=== PATIENT | male | born 1955 | race Caucasian/White ===

== ENCOUNTER → 2023-08-14 07:08 | Outpatient (REF) | payer MEDICARE, OTHER, SELFPAY | LOC: MRI 07:08 | PROVIDERS: ATTENDING PHYSICIAN Internal Medicine | DX: M25.562 Pain in left knee (principal) | CPT/HCPCS: 73721 ==

== ENCOUNTER → 2023-09-10 11:05 | Outpatient (REF) | payer MEDICARE, OTHER, SELFPAY ==
[2023-09-10 12:25] LABS: % Basophils 0.2 % (0-2); % Eosinophils 0.5 % (0-6); % Immature Granulocytes 0.4 % (0-0.5); % Lymphocytes 21.7 % (20.5-51.1); % Monocytes 7.4 % (1.7-9.3); % Neutrophils 69.8 % (42.2-75.2); Absolute Eosinophils 0.1 10^3/uL (0-0.7); Absolute Lymphocytes 2.5 10^3/uL (1.2-3.4); Absolute Monocytes 0.8 10^3/uL (0.1-0.6); Absolute Neutrophils 7.9 10^3/uL (1.4-6.5); Hematocrit 41.8 % (39.0-52.0); Hemoglobin 15.1 g/dL (13.0-18.0); Mean Corp Hgb Conc. 36.1 g/dL (33.0-37.0); Mean Corpuscular Hgb 32.1 pg (27.0-31.0); Mean Corpuscular Volume 88.7 fL (80.0-94.0); Mean Platelet Volume 9.9 fL (7.4-10.4); Nucleated Red Blood Cells % 0 % (-); Platelet Count 224 10^3/uL (130-400); Red Blood Cell Count 4.71 10^6/uL (4.70-6.10); Red Cell Dist. Width 12.8 % (11.5-14.5); White Blood Cell Count 11.3 10^3/uL (4.8-10.8)
[2023-09-10 12:49] LABS: Blood Urea Nitrogen 24 mg/dl (9-20); Calcium 9.5 mg/dl (8.4-10.2); Carbon Dioxide 26 mmol/L (22-30); Chloride 105 mmol/L (98-107); Glucose 89 mg/dl (70-99); Potassium 4.4 mmol/L (3.5-5.1); Sodium 137 mmol/L (135-145); eGFR > 60.00
== END ==
LOC: ECG 11:05
PROVIDERS: ATTENDING PHYSICIAN Orthopaedic Surgery
DX: Z01.818 Encounter for other preprocedural examination (principal)
CPT/HCPCS: 36415; 80048; 85025; 93005

== ENCOUNTER 2023-11-06 10:17 | Outpatient (RCR) | payer MEDICARE, OTHER, SELFPAY | END 2023-11-06 23:59 | disposition home or self-care (01) | LOC: RPT 10:17 | PROVIDERS: ATTENDING PHYSICIAN Orthopaedic Surgery | DX: Z47.89 Encounter for other orthopedic aftercare (principal); S83.232D Complex tear of medial meniscus, current injury, left knee, subsequent encounter; S83.272D Complex tear of lateral meniscus, current injury, left knee, subsequent encounter; M84.362D Stress fracture, left tibia, subsequent encounter for fracture with routine healing; Z73.6 Limitation of activities due to disability; R26.89 Other abnormalities of gait and mobility; M25.562 Pain in left knee | CPT/HCPCS: 97010; 97110; 97162 ==

== ENCOUNTER 2023-11-20 10:01 | Outpatient (RCR) | payer MEDICARE, OTHER, SELFPAY | END 2023-12-07 09:59 | disposition home or self-care (01) | LOC: RPT 10:01 | PROVIDERS: ATTENDING PHYSICIAN Orthopaedic Surgery | DX: Z47.89 Encounter for other orthopedic aftercare (principal); S83.232D Complex tear of medial meniscus, current injury, left knee, subsequent encounter; S83.272D Complex tear of lateral meniscus, current injury, left knee, subsequent encounter; M84.362D Stress fracture, left tibia, subsequent encounter for fracture with routine healing; Z73.6 Limitation of activities due to disability; R26.89 Other abnormalities of gait and mobility; M25.562 Pain in left knee | CPT/HCPCS: 97010; 97110 ==

== ENCOUNTER 2023-12-30 15:19 | Inpatient (IN) | payer MEDICARE, OTHER, SELFPAY ==
[2023-12-30 12:34] VITALS: BP 161/98
[2023-12-30 12:58] LABS: % Basophils 0.1 % (0-2); % Eosinophils 1.1 % (0-6); % Immature Granulocytes 0.1 % (0-0.5); % Lymphocytes 19.4 % (20.5-51.1); % Monocytes 8.3 % (1.7-9.3); Absolute Eosinophils 0.1 10^3/uL (0-0.7); Absolute Lymphocytes 1.6 10^3/uL (1.2-3.4); Absolute Monocytes 0.7 10^3/uL (0.1-0.6); Hematocrit 40.9 % (39.0-52.0); Hemoglobin 14.4 g/dL (13.0-18.0); Mean Corp Hgb Conc. 35.2 g/dL (33.0-37.0); Mean Corpuscular Hgb 32.2 pg (27.0-31.0); Mean Corpuscular Volume 91.5 fL (80.0-94.0); Mean Platelet Volume 9.2 fL (7.4-10.4); Nucleated Red Blood Cells % 0 % (-); Platelet Count 199 10^3/uL (130-400); Red Blood Cell Count 4.47 10^6/uL (4.70-6.10); Red Cell Dist. Width 12.7 % (11.5-14.5); White Blood Cell Count 8.5 10^3/uL (4.8-10.8)
[2023-12-30 13:16] LABS: ALT (SGPT) 28 U/L (0-50); AST (SGOT) 28 U/L (17-59); Albumin 4.2 g/dl (3.5-5.0); Alkaline Phosphatase 100 U/L (38-126); Blood Urea Nitrogen 16 mg/dl (9-20); Calcium 9.8 mg/dl (8.4-10.2); Carbon Dioxide 25 mmol/L (22-30); Chloride 107 mmol/L (98-107); Glucose 102 mg/dl (70-99); Potassium 4.4 mmol/L (3.5-5.1); Sodium 138 mmol/L (135-145); Total Bilirubin 0.6 mg/dl (0.2-1.3); Total Protein 6.8 g/dl (6.3-8.2); eGFR > 60.00
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
[2023-12-30] MEDS: ZOSYN 50 IV ×2 (14:08→19:40)
[2023-12-30] MEDS: ROXICODONE 5 MG PO ×2 (14:08→18:18)
[2023-12-30 14:24] VITALS: BP 160/73; BMI 28.1
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
[2023-12-30] MEDS: VANCOCIN 540 MG IV (14:51)
[2023-12-30 15:06] LABS: Erythrocyte Sed Rate 26 mm/hour (0-20)
[2023-12-30 16:21] VITALS: BP 162/72
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
[2023-12-30 17:57] VITALS: BP 145/80; BMI 28.2
[2023-12-30] MEDS: LOVENOX 40 MG SC (18:10)
[2023-12-30] MEDS: LIPITOR 10 MG PO (18:10)
--- NOTE | 2023-12-30 18:57 | PHA.VAN.IN ---
Assessment
- Assessment
Renal Function: Appears elevated from baseline (09/10/23 SCR = 0.9)
Concomitant Antimicrobials: ZOSYN
- Previous Dosing Experience
Previous Regimen: NONE
Plan
- Plan
Initial / Loading Dose: 2GM
Maintenance Regimen: DOSING BY RANDOM LEVELS
Monitoring: RANDOM VANCOMYCIN LEVEL 12/31/23 AM
Pharmacokinetics Vancomycin I
- -
Patient Age: 68
Patient Sex: Male
Vancomycin Day #: 1
Indication: Bone And Joint ([R] HEEL CELLULITIS)
Requesting Provider: NICOLE
Height / Weight:
Height 5 ft 8 in
Actual Weight 84.141 kg
- Vital Signs / Lab Results
Temp Pulse Resp BP Pulse Ox
98.5 F 64 16 145/80 95
12/30/23 17:57 12/30/23 17:57 12/30/23 17:57 12/30/23 17:57 12/30/23 17:57
Lab Results - Hematology
12/30/23
12:44
WBC 8.5
Lab Results - Chemistry
12/30/23
12:44
BUN 16
Creatinine 1.2
Albumin 4.2
Microbiology Results
12/30/23 14:40 Gram Stain - Preliminary
Foot - Right
[2023-12-30 23:12] VITALS: BP 121/63
[2023-12-31] MEDS: ZOSYN 50 IV ×4 (03:15→19:38)
[2023-12-31] MEDS: ROXICODONE 5 MG PO ×2 (03:25→08:12)
[2023-12-31] MEDS: SYNTHROID 75 MCG PO (05:47)
[2023-12-31 07:30] VITALS: BP 140/87
[2023-12-31 07:49] LABS: % Basophils 0.3 % (0-2); % Eosinophils 2.4 % (0-6); % Immature Granulocytes 0.3 % (0-0.5); % Lymphocytes 31.3 % (20.5-51.1); % Monocytes 10.7 % (1.7-9.3); Absolute Eosinophils 0.1 10^3/uL (0-0.7); Absolute Lymphocytes 1.8 10^3/uL (1.2-3.4); Absolute Monocytes 0.6 10^3/uL (0.1-0.6); Absolute Neutrophils 3.2 10^3/uL (1.4-6.5); Hematocrit 40.3 % (39.0-52.0); Mean Corp Hgb Conc. 34.7 g/dL (33.0-37.0); Mean Corpuscular Volume 89.4 fL (80.0-94.0); Mean Platelet Volume 9.4 fL (7.4-10.4); Nucleated Red Blood Cells % 0 % (-); Platelet Count 206 10^3/uL (130-400); Red Blood Cell Count 4.51 10^6/uL (4.70-6.10); Red Cell Dist. Width 12.6 % (11.5-14.5); White Blood Cell Count 5.8 10^3/uL (4.8-10.8)
[2023-12-31 08:05] LABS: Blood Urea Nitrogen 21 mg/dl (9-20); Calcium 9.3 mg/dl (8.4-10.2); Carbon Dioxide 26 mmol/L (22-30); Chloride 106 mmol/L (98-107); Estimated Creatinine Clearance 61 ml/min; Glucose 98 mg/dl (70-99); Potassium 4.7 mmol/L (3.5-5.1); Sodium 142 mmol/L (135-145); eGFR > 60.00
[2023-12-31] MEDS: BYSTOLIC 5 MG PO (08:12)
[2023-12-31] MEDS: PROTONIX 40 MG PO (08:12)
[2023-12-31] MEDS: NORVASC 5 MG PO (08:13)
--- NOTE | 2023-12-31 08:15 | PHA.VAN.FU ---
Vancomycin Assessment / Plan
- Assessment
Renal Function: Stable
WBC's are: WNL
In the past 24 hrs, patient has been: Afebrile
Concomitant Antimicrobials: piperacillin/tazobactam
- Assessment - Therapeutic Drug Monitoring
Random Level: 8 - drawn ~16H after 2g loading dose
- Dosing Plan
Dosing by Level: Re-dose today (Vanc 1500mg)
- Monitoring Plan
Random Level: 12/31 0600
- Follow Up
Pharmacy will continue to follow.
Vancomycin Follow UP
- -
Patient Age: 68
Patient Sex: Male
Vancomycin Day #: 2
Indication: Bone And Joint
Requesting Provider: Ortega Massey
Pertinent Antimicrobial Allergies:
no pertinent antibiotic allergies
Height / Weight:
Height 5 ft 8 in
Actual Weight 84.141 kg
- Vital Signs / Lab Results
Temp Pulse Resp BP Pulse Ox
97.4 F 60 16 140/87 97
12/31/23 07:30 12/31/23 07:30 12/31/23 07:30 12/31/23 07:30 12/31/23 07:30
Lab Results - Hematology
12/30/23 12/31/23
12:44 07:20
WBC 8.5 5.8
Lab Results - Chemistry
12/30/23 12/31/23
12:44 07:20
BUN 16 21 H
Creatinine 1.2 1.1
Estimated Creat Clear 61
Albumin 4.2
Microbiology Results
12/30/23 14:40 Gram Stain - Preliminary
Foot - Right
Therapeutic Drug Monitoring
Random Vancomycin 8.0 ug/ml 12/31/23 07:20
[2023-12-31] MEDS: VANCOCIN 300 MG IV (09:09)
[2023-12-31] MEDS: VANCOCIN 300 ML IV (09:09)
[2023-12-31] MEDS: ROXICODONE 7.5 MG PO ×2 (12:12→19:44)
--- NOTE | 2023-12-31 13:40 | W.PN.HOSP.TC ---
Today's Communication/Plan
-
ID eval
F/u MRI foot report
Assessment / Plan
Assessment / Plan
Right heel cellulitis
R/o calcaneal osteomyelitis/abscess
-Foot x-ray did not show any osteomyelitis
-MRI of right foot pending today
-Good palpable dorsalis pedis and posterior tibialis pulse
-Repeated on vancomycin and Zosyn for now
-ID evaluation
Essential HTN - uncontrolled
-Continue home dose of Norvasc/nebivolol
-As needed hydralazine for systolic blood pressure greater than 160
Hypothyroidism
-Maintain on home dose of levothyroxine
GERD
-Continue pantoprazole
Hyperlipidemia
-Continue statin
DVT PPX - scd
Full code
Anticipated Discharge: 24 - 48 hours
Subjective/Interval History
-
Date of Service: December 31, 2023
Complaining of right foot pain
Afebrile overnight
Objective Data
-
Labs:
Laboratory Results
12/31/23
07:20
WBC 5.8
Hgb 14.0
Hct 40.3
Plt Count 206
Sodium 142
Potassium 4.7
Chloride 106
Carbon Dioxide 26
BUN 21 H
Creatinine 1.1
Glucose 98
Calcium 9.3
Vital Signs:
Vital Signs
Temp Pulse Resp BP Pulse Ox
97.4 F 60 16 140/87 97
12/31/23 07:30 12/31/23 07:30 12/31/23 07:30 12/31/23 07:30 12/31/23 07:30
I&O
12/30/23 12/31/23 01/01/24
06:59 06:59 06:59
Intake Total 750 / 750
Balance 750 / 750
Review of Systems
-
Respiratory: Reports No Symptoms
Cardiac: Reports No Symptoms
Abdomen/GI: Reports No Symptoms
Physical Exam
-
General: No Apparent Distress
HEENT: Negative Oxygen
Musculoskeletal: Other (Right foot heal superficial wound and surrounding cellulitis)
Skin: Warm
Neuro: Awake, Alert and AO x 3
Psych: Calm
[2023-12-31 15:49] VITALS: BP 138/84
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
--- NOTE | 2023-12-31 16:53 | CM ---
manager universal reviewed patient's chart and met with patient and patient lives with his spouse in a multilevel home, patient was independent with adl's and ambulation, no dme, patient drives, home when stable.
Patient and spouse requested information on AD which foster care case manager provided.
Pharmacy; [facility]
PCP: Dr. Chung
Plan; Home with spouse no needs.
[2023-12-31] MEDS: LIPITOR 10 MG PO (17:05)
[2023-12-31] MEDS: LOVENOX 40 MG SC (17:05)
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
[2023-12-31 23:07] VITALS: BP 102/57
[2024-01-01] MEDS: ZOSYN 50 IV ×4 (02:16→19:36)
[2024-01-01] MEDS: ROXICODONE 7.5 MG PO ×4 (02:16→19:37)
[2024-01-01] MEDS: SYNTHROID 75 MCG PO (06:03)
[2024-01-01 07:00] VITALS: BP 158/82
[2024-01-01 08:32] LABS: Vancomycin Random 8.1 ug/ml
[2024-01-01] MEDS: NORVASC 5 MG PO (08:39)
[2024-01-01] MEDS: BYSTOLIC 5 MG PO (08:40)
[2024-01-01] MEDS: PROTONIX 40 MG PO (08:40)
--- NOTE | 2024-01-01 08:43 | W.PN.HOSP.TC ---
Today's Communication/Plan
-
f/u wound cs report
await ID/pods eval today
increase BP meds
Assessment / Plan
Assessment / Plan
MRI R Foot
Soft tissue defect involving the posteromedial and inferior aspect of the right heel. There is patchy increased T2 and STIR signal within the marrow adjacent to this defect, with some loss of posteromedial cortical definition of the calcaneus. These
findings are suspicious for osteomyelitis. It should be noted that MRI is highly sensitive for osteomyelitis but less specific.
Focal calcifications within the soft tissues off the posteromedial and inferior margin of the calcaneus, close to the soft tissue defect. It is possible that some of the abnormal signal within the marrow of the adjacent calcaneus is from reactive
inflammation associated with these calcifications.

Right heel cellulitis
R/o calcaneal osteomyelitis/abscess
-Foot x-ray did not show any osteomyelitis
-MRI of right foot report above - showing some BM signal in calcaneum
-Good palpable dorsalis pedis and posterior tibialis pulse
-ID evaluation requested and help appreciated.
-Currently on vancomycin and zosyn, will continue.
-Superficial wound culture report pending
-Pods evaluated and did bedside I&D of small bulla/superficial skin pocket
-Further decision on need of bone biopsy to be made.
Essential HTN - uncontrolled
-Continue home dose of Norvasc/nebivolol
-Increased dose of amlodipine to 10mg/d
-As needed hydralazine for systolic blood pressure greater than 160
Hypothyroidism
-Maintain on home dose of levothyroxine
GERD
-Continue pantoprazole
Hyperlipidemia
-Continue statin
DVT PPX - scd
Full code
Anticipated Discharge: 24 - 48 hours
Subjective/Interval History
-
Date of Service: January 01, 2024
patient resting comfortably in bed
denies of having any excessive pain in the right footn
afebrile in night
Objective Data
-
Labs:
Laboratory Results
01/01/24
06:38
WBC Pending
Hgb Pending
Hct Pending
Plt Count Pending
Sodium Pending
Potassium Pending
Chloride Pending
Carbon Dioxide Pending
BUN Pending
Creatinine Pending
Glucose Pending
Calcium Pending
Vital Signs:
Vital Signs
Temp Pulse Resp BP Pulse Ox
97.9 F 57 18 158/82 98
01/01/24 07:00 01/01/24 07:00 01/01/24 07:00 01/01/24 07:00 01/01/24 07:00
I&O
12/31/23 01/01/24 01/02/24
06:59 06:59 06:59
Intake Total 750 / 750 1750 / 1750
Balance 750 / 750 1750 / 1750
Review of Systems
-
Respiratory: Reports No Symptoms
Cardiac: Reports No Symptoms
Abdomen/GI: Reports No Symptoms
Physical Exam
-
General: No Apparent Distress
HEENT: Negative Oxygen
Musculoskeletal: Other (Right foot heal superficial wound and surrounding cellulitis)
Skin: Warm
Neuro: Awake, Alert and AO x 3
Psych: Calm
[2024-01-01 08:52] LABS: Blood Urea Nitrogen 16 mg/dl (9-20); Calcium 9.4 mg/dl (8.4-10.2); Carbon Dioxide 27 mmol/L (22-30); Chloride 105 mmol/L (98-107); Estimated Creatinine Clearance 61 ml/min; Glucose 84 mg/dl (70-99); Potassium 4.8 mmol/L (3.5-5.1); Sodium 141 mmol/L (135-145); eGFR > 60.00
--- NOTE | 2024-01-01 10:08 | PHA.VAN.FU ---
Addendum entered and electronically signed by Mojgan Shen Juice 01/01/24 11:44:
Agree with assessment and plan below.
Original Note:
Vancomycin Assessment / Plan
- Assessment
Renal Function: Stable
In the past 24 hrs, patient has been: Afebrile
Concomitant Antimicrobials: Pipercillin/Tazobactam
- Assessment - Therapeutic Drug Monitoring
Random Level: 8.1 ~21hrs after last 1500mg dose
- Dosing Plan
Adjust Regimen to: 750mg Q12H - Give first dose now and 1800 due to low level
New Regimen Predicts: AUC (476), Peak (26.3), Trough (14.4)
- Monitoring Plan
No level(s) ordered at this time: consider in the next few days
- Follow Up
Pharmacy will continue to follow.
Vancomycin Follow UP
- -
Patient Age: 68
Patient Sex: Male
Vancomycin Day #: 3
Indication: Bone And Joint
Requesting Provider: Ortega Massey / Dr. Luong
Pertinent Antimicrobial Allergies:
no pertinent antibiotic allergies
Height / Weight:
Height 5 ft 8 in
Actual Weight 84.141 kg
- Vital Signs / Lab Results
Temp Pulse Resp BP Pulse Ox
97.9 F 57 18 158/82 98
01/01/24 07:00 01/01/24 07:00 01/01/24 07:00 01/01/24 07:00 01/01/24 07:00
Lab Results - Hematology
12/30/23 12/31/23
12:44 07:20
WBC 8.5 5.8
Lab Results - Chemistry
12/30/23 12/31/23 01/01/24
12:44 07:20 06:38
BUN 16 21 H 16
Creatinine 1.2 1.1 1.1
Estimated Creat Clear 61 61
Albumin 4.2
Microbiology Results
12/30/23 14:40 Wound Culture - Preliminary
Foot - Right Staphylococcus species
Gram Stain - Preliminary
Therapeutic Drug Monitoring
Random Vancomycin 8.1 ug/ml 01/01/24 06:38
--- NOTE | 2024-01-01 10:20 | W.PN.ID1 ---
Date of Service
Date of Service: January 01, 2024
Today's Communication
Continue antibiotics. Await further culture data.
Assessment / Plan
Right foot wound
Right heel osteomyelitis
- hx or remote significant surgical reconstruction of right ankle and hx osteomyelitis.
- ?new infection ?recurrence of prior infection
Hypothyroidism
GERD
HTN
Dyslipidemia
Recommendations:
Continue with current antibiotics while cultures are pending.
Follow white count and temperature curve.
Further recommendations as additional data is returned.
����������������������������������������������������������
Chief Complaint
-: Other (Osteomyelitis)
Subjective / Review of Systems
Review of Systems: No Fever and No Chills
Vital Signs / Physical Exam
Vital Signs
Vital Signs
Temp Pulse Resp BP Pulse Ox
97.9 F 57 18 158/82 98
01/01/24 07:00 01/01/24 07:00 01/01/24 07:00 01/01/24 07:00 01/01/24 07:00
Physical Exam
Constitutional: No Acute Distress, Comfortable and Non-toxic
Eyes: Sclera Anicteric
Cardiovascular: S1/S2; Negative S3/S4
Pulmonary: Negative Wheezes, Rales or Rhonchi
Extremities: Erythema (mild; right medial ankle); Negative Edema
Neurological: Awake and Alert
Psychological: Calm
Objective Data
Lab Data
Lab Results
01/01/24 06:38
ESR 26 mm/hour (0-20) H 12/30/23 12:44
Estimated Creat Clear 61 ml/min 01/01/24 06:38
Total Bilirubin 0.6 mg/dl (0.2-1.3) 12/30/23 12:44
AST 28 U/L (17-59) 12/30/23 12:44
ALT 28 U/L (0-50) 12/30/23 12:44
Alkaline Phosphatase 100 U/L (38-126) 12/30/23 12:44
C-Reactive Protein 39.50 mg/L (0.0-10.00) H 12/30/23 12:44
Most recent labs reviewed.
Micro Results:
12/30/23 14:40 Wound Culture - Preliminary
Foot - Right Staphylococcus species
Gram Stain - Preliminary
12/31/23 16:32 MRSA Screen - Pending
Nose
Imaging:
12/31/2023 MRI right lower extremity: Soft tissue defect involving the posteromedial and inferior aspect of the right heel. There is patchy increased T2 and STIR signal within the marrow adjacent to this defect, with some loss of posteromedial
cortical definition of the calcaneus. These findings are suspicious for osteomyelitis. It should be noted that MRI is highly sensitive for osteomyelitis but less specific.
Focal calcifications within the soft tissues off the posteromedial and inferior margin of the calcaneus, close to the soft tissue defect. It is possible that some of the abnormal signal within the marrow of the adjacent calcaneus is from reactive
inflammation associated with these calcifications.
12/30/2023 X-ray right foot: No radiographic evidence for acute osteomyelitis: Please see full dictation for additional detail.
Care Review
Plan reviewed with: Physician (Hospitalist)
--- NOTE | 2024-01-01 11:24 | CM ---
Chart reviewed and case liner will follow with patient progress, home at discharge.
Plan; Home when stable.
[2024-01-01] MEDS: VANCOCIN 150 IV ×2 (12:09→17:17)
[2024-01-01 12:14] LABS: % Basophils 0.4 % (0-2); % Eosinophils 2.4 % (0-6); % Immature Granulocytes 0.3 % (0-0.5); % Lymphocytes 32.4 % (20.5-51.1); % Monocytes 9.4 % (1.7-9.3); % Neutrophils 55.1 % (42.2-75.2); Absolute Eosinophils 0.2 10^3/uL (0-0.7); Absolute Lymphocytes 2.2 10^3/uL (1.2-3.4); Absolute Monocytes 0.6 10^3/uL (0.1-0.6); Absolute Neutrophils 3.8 10^3/uL (1.4-6.5); Hematocrit 40.5 % (39.0-52.0); Hemoglobin 14.1 g/dL (13.0-18.0); Mean Corp Hgb Conc. 34.8 g/dL (33.0-37.0); Mean Corpuscular Hgb 32.3 pg (27.0-31.0); Mean Corpuscular Volume 92.7 fL (80.0-94.0); Mean Platelet Volume 9.6 fL (7.4-10.4); Nucleated Red Blood Cells % 0 % (-); Platelet Count 212 10^3/uL (130-400); Red Blood Cell Count 4.37 10^6/uL (4.70-6.10); Red Cell Dist. Width 12.6 % (11.5-14.5); White Blood Cell Count 6.8 10^3/uL (4.8-10.8)
[2024-01-01 15:39] VITALS: BP 131/80
[2024-01-01] MEDS: LIPITOR 10 MG PO (17:18)
[2024-01-01] MEDS: LOVENOX 40 MG SC (17:18)
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
[2024-01-01 23:19] VITALS: BP 131/75
[2024-01-02] VITALS (8 sets, daily range): BP systolic 102–140; BP diastolic 65–84
[2024-01-02] MEDS: ZOSYN 50 IV ×2 (02:07→07:37)
[2024-01-02] MEDS: ROXICODONE 7.5 MG PO ×5 (03:02→21:12)
[2024-01-02] MEDS: SYNTHROID 75 MCG PO (05:55)
[2024-01-02] MEDS: VANCOCIN 150 IV (05:56)
[2024-01-02 07:11] LABS: % Basophils 0.3 % (0-2); % Eosinophils 2.8 % (0-6); % Immature Granulocytes 0.1 % (0-0.5); % Lymphocytes 31.9 % (20.5-51.1); % Monocytes 8.8 % (1.7-9.3); % Neutrophils 56.1 % (42.2-75.2); Absolute Eosinophils 0.2 10^3/uL (0-0.7); Absolute Lymphocytes 2.1 10^3/uL (1.2-3.4); Absolute Monocytes 0.6 10^3/uL (0.1-0.6); Absolute Neutrophils 3.8 10^3/uL (1.4-6.5); Hematocrit 41.4 % (39.0-52.0); Hemoglobin 14.2 g/dL (13.0-18.0); Mean Corp Hgb Conc. 34.3 g/dL (33.0-37.0); Mean Corpuscular Hgb 31.1 pg (27.0-31.0); Mean Corpuscular Volume 90.8 fL (80.0-94.0); Mean Platelet Volume 9.4 fL (7.4-10.4); Nucleated Red Blood Cells % 0 % (-); Platelet Count 224 10^3/uL (130-400); Red Blood Cell Count 4.56 10^6/uL (4.70-6.10); Red Cell Dist. Width 12.7 % (11.5-14.5); White Blood Cell Count 6.7 10^3/uL (4.8-10.8)
[2024-01-02 07:42] LABS: Blood Urea Nitrogen 12 mg/dl (9-20); Calcium 9.5 mg/dl (8.4-10.2); Carbon Dioxide 26 mmol/L (22-30); Chloride 105 mmol/L (98-107); Estimated Creatinine Clearance 56 ml/min; Glucose 95 mg/dl (70-99); Potassium 4.3 mmol/L (3.5-5.1); Sodium 141 mmol/L (135-145); eGFR > 60.00
--- NOTE | 2024-01-02 09:24 | W.SUR.POST ---
Surgical Immediate Post Op
Note
Pre Op Diagnosis: abscess right heel and osteomyelitis right calcaneus
Post Op Diagnosis: same
Procedure Performed: I&D right heel
Primary Surgeon: Kayley
Secondary Surgeons: n/a
Anesthesia: MAC w/local block 10 cc 1% [address] and 6cc 0.5% [address]
Estimated Blood Loss: 5mL
Fluids: n/a
Drains/Shunts: n/a
Specimens/Cultures: bone right heel for cx and calcifications to plantar heel for path
Doppler/Duplex/Angio (Y/N): N
Complications: N
Operative Findings: see report- local abscess in sq, calcifications sq plantar heel
--- NOTE | 2024-01-02 09:31 | PHA.VAN.FU ---
Vancomycin Assessment / Plan
- Assessment
Renal Function: Stable
WBC's are: WNL
In the past 24 hrs, patient has been: Afebrile
Concomitant Antimicrobials: piperacillin/tazo
- Dosing Plan
Continue: vancomycin 750 mg q12h - -first dose 12/31 1200
- Monitoring Plan
Peak Level: 01/01 2030 - after 4th 750 mg dose
Trough Level: 01/02 0530
- Follow Up
Pharmacy will continue to follow.
Vancomycin Follow UP
- -
Patient Age: 68
Patient Sex: Male
Vancomycin Day #: 4
Indication: Bone And Joint
Requesting Provider: Ortega Massey / Dr. Luong
Pertinent Antimicrobial Allergies:
no pertinent antibiotic allergies
Height / Weight:
Height 5 ft 8 in
Actual Weight 84.141 kg
Pertinent Past Medical History: OR today - R heel I and D ; Bone BX
- Vital Signs / Lab Results
Temp Pulse Resp BP Pulse Ox
97.9 F 52 20 126/84 99
01/02/24 07:00 01/02/24 07:00 01/02/24 07:00 01/02/24 07:00 01/02/24 07:00
Lab Results - Hematology
12/30/23 12/31/23 01/01/24
12:44 07:20 06:38
WBC 8.5 5.8 6.8
01/02/24
06:13
WBC 6.7
Lab Results - Chemistry
12/30/23 12/31/23 01/01/24
12:44 07:20 06:38
BUN 16 21 H 16
Creatinine 1.2 1.1 1.1
Estimated Creat Clear 61 61
Albumin 4.2
01/02/24
06:13
BUN 12
Creatinine 1.2
Estimated Creat Clear 56
Albumin
Microbiology Results
12/31/23 16:32 MRSA Screen - Final
Nose No Methicillin Resistant Staphylococcus aureus isolated.
12/30/23 14:40 Wound Culture - Preliminary
Foot - Right Staphylococcus species
Gram Stain - Preliminary
Therapeutic Drug Monitoring
Random Vancomycin 8.1 ug/ml 01/01/24 06:38
--- NOTE | 2024-01-02 10:29 | PTCARENOTE ---
Received pt from PACU, right heel dressing c/d/i, +cms to toes, +pedal pulses bl. VSS, denies pain at present.
[2024-01-02] MEDS: PROTONIX 40 MG PO (10:33)
[2024-01-02] MEDS: BYSTOLIC PO (10:34)
[2024-01-02] MEDS: NORVASC 10 MG PO (10:34)
--- NOTE | 2024-01-02 11:15 | W.PN.HOSP.TC ---
Today's Communication/Plan
-
abx per ID
f/u wound cs report
Assessment / Plan
Assessment / Plan
MRI R Foot
Soft tissue defect involving the posteromedial and inferior aspect of the right heel. There is patchy increased T2 and STIR signal within the marrow adjacent to this defect, with some loss of posteromedial cortical definition of the calcaneus. These
findings are suspicious for osteomyelitis. It should be noted that MRI is highly sensitive for osteomyelitis but less specific.
Focal calcifications within the soft tissues off the posteromedial and inferior margin of the calcaneus, close to the soft tissue defect. It is possible that some of the abnormal signal within the marrow of the adjacent calcaneus is from reactive
inflammation associated with these calcifications.

Right heel cellulitis
R/o calcaneal osteomyelitis/abscess
-Foot x-ray did not show any osteomyelitis
-MRI of right foot report above - showing some BM signal in calcaneum
-Good palpable dorsalis pedis and posterior tibialis pulse
-ID evaluation requested and help appreciated.
-Currently on vancomycin and zosyn, will continue.
-Superficial wound culture growing staphylococcus, further ID/susceptibility pending
-Pods evaluated and did bedside I&D of small bulla/superficial skin pocket 12/30
-S/p bone biopsy on 01/01 - f/u culture/path report
Essential HTN - uncontrolled
-Continue home dose of Norvasc/nebivolol
-Increased dose of amlodipine to 10mg/d
-As needed hydralazine for systolic blood pressure greater than 160
Hypothyroidism
-Maintain on home dose of levothyroxine
GERD
-Continue pantoprazole
Hyperlipidemia
-Continue statin
DVT PPX - scd
Full code
Anticipated Discharge: 24 - 48 hours
Subjective/Interval History
-
Date of Service: January 02, 2024
resting comfortably in bed
no pain at right heel site
no fever
no other issues
Objective Data
-
Labs:
Laboratory Results
01/02/24
06:13
WBC 6.7
Hgb 14.2
Hct 41.4
Plt Count 224
Sodium 141
Potassium 4.3
Chloride 105
Carbon Dioxide 26
BUN 12
Creatinine 1.2
Glucose 95
Calcium 9.5
Vital Signs:
Vital Signs
Temp Pulse Resp BP Pulse Ox
97.9 F 52 18 131/79 97
01/02/24 10:20 01/02/24 10:34 01/02/24 10:20 01/02/24 10:20 01/02/24 10:20
I&O
01/01/24 01/02/24 01/03/24
06:59 06:59 06:59
Intake Total 0 / 1750 1809 / 1809 50 / 50
Balance 1750 / 1750 181 / 181 50 / 50
Review of Systems
-
Respiratory: Reports No Symptoms
Cardiac: Reports No Symptoms
Abdomen/GI: Reports No Symptoms
Physical Exam
-
General: No Apparent Distress
HEENT: Negative Oxygen
Musculoskeletal: Other (Right foot heal superficial wound and surrounding cellulitis)
Skin: Warm
Neuro: Awake, Alert and AO x 3
Psych: Calm
--- NOTE | 2024-01-02 12:59 | W.PN.ID1 ---
Date of Service
Date of Service: January 02, 2024
Today's Communication
Continue antibiotics. See below�
Assessment / Plan
Right foot wound
Right heel osteomyelitis
- hx or remote significant surgical reconstruction of right ankle and hx osteomyelitis.
- ?new infection ?recurrence of prior infection
Hypothyroidism
GERD
HTN
Dyslipidemia
Recommendations:
Cultures obtained from drainage have revealed presence of MSSA.
Narrow to cefazolin 2 g IV every 8 hours.
Will await bone cultures, along with pathology.
Follow white count and temperature curve.
Given osteomyelitis, will likely need a 6-week course of IV antibiotics.
����������������������������������������������������������
Chief Complaint
-: Other (Osteomyelitis right ankle)
Subjective / Review of Systems
Patient seen and examined. He is status post debridement by Podiatry with bone cultures obtained.
Review of Systems: No Fever and No Chills
Vital Signs / Physical Exam
Vital Signs
Vital Signs
Temp Pulse Resp BP Pulse Ox
97.9 F 52 18 131/79 97
01/02/24 10:20 01/02/24 10:34 01/02/24 10:20 01/02/24 10:20 01/02/24 10:20
Physical Exam
Constitutional: No Acute Distress, Comfortable and Non-toxic
Eyes: Sclera Anicteric
Pulmonary: Non Labored
Gastrointestinal: Non Distended
Wound: Other (ankle dressed)
Neurological: Awake and Alert
Psychological: Calm
Objective Data
Lab Data
Lab Results
01/02/24 06:13
01/02/24 06:13
ESR 26 mm/hour (0-20) H 12/30/23 12:44
Estimated Creat Clear 56 ml/min 01/02/24 06:13
Total Bilirubin 0.6 mg/dl (0.2-1.3) 12/30/23 12:44
AST 28 U/L (17-59) 12/30/23 12:44
ALT 28 U/L (0-50) 12/30/23 12:44
Alkaline Phosphatase 100 U/L (38-126) 12/30/23 12:44
C-Reactive Protein 39.50 mg/L (0.0-10.00) H 12/30/23 12:44
Most recent labs reviewed.
Micro Results:
12/30/23 14:40 Wound Culture - Final
Foot - Right S aureus-Methicillin Sensitive
Gram Stain - Final
01/02/24 09:03 Tissue Culture - Pending
Heel - Right Gram Stain - Pending
12/31/23 16:32 MRSA Screen - Final
Nose No Methicillin Resistant Staphylococcus aureus isolated.
Imaging:
12/31/2023 MRI right lower extremity: Soft tissue defect involving the posteromedial and inferior aspect of the right heel. There is patchy increased T2 and STIR signal within the marrow adjacent to this defect, with some loss of posteromedial
cortical definition of the calcaneus. These findings are suspicious for osteomyelitis. It should be noted that MRI is highly sensitive for osteomyelitis but less specific.
Focal calcifications within the soft tissues off the posteromedial and inferior margin of the calcaneus, close to the soft tissue defect. It is possible that some of the abnormal signal within the marrow of the adjacent calcaneus is from reactive
inflammation associated with these calcifications.
12/30/2023 X-ray right foot: No radiographic evidence for acute osteomyelitis: Please see full dictation for additional detail.
[2024-01-02] MEDS: ANCEF 10 IV ×2 (13:54→22:18)
[2024-01-02] MEDS: LOVENOX 40 MG SC (17:04)
[2024-01-02] MEDS: LIPITOR 10 MG PO (17:04)
[2024-01-03] MEDS: ROXICODONE 7.5 MG PO ×2 (02:05→06:05)
[2024-01-03] MEDS: SYNTHROID 75 MCG PO (06:05)
[2024-01-03] MEDS: ANCEF 10 IV ×3 (06:05→21:48)
[2024-01-03 07:25] VITALS: BP 148/89
[2024-01-03 08:25] LABS: Blood Urea Nitrogen 13 mg/dl (9-20); Calcium 9.2 mg/dl (8.4-10.2); Carbon Dioxide 26 mmol/L (22-30); Chloride 105 mmol/L (98-107); Estimated Creatinine Clearance 61 ml/min; Glucose 101 mg/dl (70-99); Potassium 4.3 mmol/L (3.5-5.1); Sodium 142 mmol/L (135-145); eGFR > 60.00
--- NOTE | 2024-01-03 08:29 | W.PN.HOSP.TC ---
Today's Communication/Plan
-
see note
Assessment / Plan
Assessment / Plan
MRI R Foot
Soft tissue defect involving the posteromedial and inferior aspect of the right heel. There is patchy increased T2 and STIR signal within the marrow adjacent to this defect, with some loss of posteromedial cortical definition of the calcaneus. These
findings are suspicious for osteomyelitis. It should be noted that MRI is highly sensitive for osteomyelitis but less specific.
Focal calcifications within the soft tissues off the posteromedial and inferior margin of the calcaneus, close to the soft tissue defect. It is possible that some of the abnormal signal within the marrow of the adjacent calcaneus is from reactive
inflammation associated with these calcifications.

Right heel cellulitis
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
-Foot x-ray did not show any osteomyelitis
-MRI of right foot report above - showing some BM signal in calcaneum
-Good palpable dorsalis pedis and posterior tibialis pulse
-ID evaluation requested and help appreciated.
-Superficial wound culture growing MSSA
-Pods evaluated and did bedside I&D of small bulla/superficial skin pocket 12/30
-S/p bone biopsy on 01/01 - f/u culture/path report
-ID input noted, will need 6 weeks of abx, will need PICC line
Essential HTN - uncontrolled
-Continue home dose of Norvasc/nebivolol
-Increased dose of amlodipine to 10mg/d
-As needed hydralazine for systolic blood pressure greater than 160
Hypothyroidism
-Maintain on home dose of levothyroxine
GERD
-Continue pantoprazole
Hyperlipidemia
-Continue statin
DVT PPX - scd
Full code
Anticipated Discharge: 24 - 48 hours
Subjective/Interval History
-
Date of Service: January 03, 2024
having some headache right now
no other issues reported
Objective Data
-
Labs:
Laboratory Results
01/03/24
07:05
Sodium 142
Potassium 4.3
Chloride 105
Carbon Dioxide 26
BUN 13
Creatinine 1.1
Glucose 101 H
Calcium 9.2
Vital Signs:
Vital Signs
Temp Pulse Resp BP Pulse Ox
97.4 F 55 14 148/89 98
01/03/24 07:25 01/03/24 07:25 01/03/24 07:25 01/03/24 07:25 01/03/24 07:25
I&O
01/02/24 01/03/24 01/04/24
06:59 06:59 06:59
Intake Total 1809 770 / 770
Balance 1809 770 / 770
Review of Systems
-
Respiratory: Reports No Symptoms
Cardiac: Reports No Symptoms
Abdomen/GI: Reports No Symptoms
Physical Exam
-
General: No Apparent Distress
HEENT: Negative Oxygen
Musculoskeletal: Other (Right foot heal superficial wound and surrounding cellulitis)
Skin: Warm
Neuro: Awake, Alert and AO x 3
Psych: Calm
[2024-01-03] MEDS: BYSTOLIC PO (08:55)
[2024-01-03] MEDS: TYLENOL 1000 MG PO ×2 (08:57→17:09)
[2024-01-03] MEDS: PROTONIX 40 MG PO (08:57)
[2024-01-03] MEDS: NORVASC 10 MG PO (08:57)
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
[2024-01-03 11:04] VITALS: BP 122/70
--- NOTE | 2024-01-03 13:52 | W.PN.ID1 ---
Date of Service
Date of Service: January 03, 2024
Today's Communication
Continue antibiotics.
Assessment / Plan
Right foot wound
Right heel osteomyelitis
- hx or remote significant surgical reconstruction of right ankle and hx osteomyelitis.
- ?new infection ?recurrence of prior infection
Hypothyroidism
GERD
HTN
Dyslipidemia
Recommendations:
Cultures show MSSA.
Continue cefazolin 2 g IV every 8 hours.
Will await bone cultures, along with pathology.
Follow white count and temperature curve.
Given osteomyelitis, will likely need a 6-week course of IV antibiotics.
Home infusion sheet placed on paper chart. Place PICC line.
����������������������������������������������������������
Chief Complaint
-: Other (Osteomyelitis right ankle)
Subjective / Review of Systems
Review of Systems: No Fever and No Chills
Vital Signs / Physical Exam
Vital Signs
Vital Signs
Temp Pulse Resp BP Pulse Ox
98.1 F 51 14 122/70 95
01/03/24 11:04 01/03/24 11:04 01/03/24 11:04 01/03/24 11:04 01/03/24 11:04
Physical Exam
Constitutional: No Acute Distress, Comfortable and Non-toxic
Eyes: Sclera Anicteric
Pulmonary: Non Labored
Gastrointestinal: Non Distended
Wound: Other (Right ankle dressed. No strikethrough.)
Neurological: Awake, Alert and Oriented
Psychological: Calm
Objective Data
Lab Data
Lab Results
01/02/24 06:13
01/03/24 07:05
ESR 26 mm/hour (0-20) H 12/30/23 12:44
Estimated Creat Clear 61 ml/min 01/03/24 07:05
Total Bilirubin 0.6 mg/dl (0.2-1.3) 12/30/23 12:44
AST 28 U/L (17-59) 12/30/23 12:44
ALT 28 U/L (0-50) 12/30/23 12:44
Alkaline Phosphatase 100 U/L (38-126) 12/30/23 12:44
C-Reactive Protein 39.50 mg/L (0.0-10.00) H 12/30/23 12:44
Most recent labs reviewed.
Micro Results:
01/02/24 09:03 Tissue Culture - Preliminary
Heel - Right Staphylococcus species
Gram Stain - Preliminary
12/30/23 14:40 Wound Culture - Final
Foot - Right S aureus-Methicillin Sensitive
Gram Stain - Final
12/31/23 16:32 MRSA Screen - Final
Nose No Methicillin Resistant Staphylococcus aureus isolated.
Imaging:
12/31/2023 MRI right lower extremity: Soft tissue defect involving the posteromedial and inferior aspect of the right heel. There is patchy increased T2 and STIR signal within the marrow adjacent to this defect, with some loss of posteromedial
cortical definition of the calcaneus. These findings are suspicious for osteomyelitis. It should be noted that MRI is highly sensitive for osteomyelitis but less specific.
Focal calcifications within the soft tissues off the posteromedial and inferior margin of the calcaneus, close to the soft tissue defect. It is possible that some of the abnormal signal within the marrow of the adjacent calcaneus is from reactive
inflammation associated with these calcifications.
12/30/2023 X-ray right foot: No radiographic evidence for acute osteomyelitis: Please see full dictation for additional detail.
Care Review
Plan reviewed with: Physician (Hospitalist)
[2024-01-03 15:20] VITALS: BP 128/78
[2024-01-03] MEDS: LIPITOR 10 MG PO (17:09)
[2024-01-03] MEDS: LOVENOX 40 MG SC (17:10)
[2024-01-03 23:22] VITALS: BP 133/76
[2024-01-04] MEDS: SYNTHROID 75 MCG PO (05:52)
[2024-01-04] MEDS: TYLENOL 1000 MG PO ×2 (05:52→21:09)
[2024-01-04] MEDS: ANCEF 10 IV ×3 (05:53→21:09)
[2024-01-04 06:40] LABS: Blood Urea Nitrogen 13 mg/dl (9-20); Calcium 9.4 mg/dl (8.4-10.2); Carbon Dioxide 26 mmol/L (22-30); Chloride 108 mmol/L (98-107); Estimated Creatinine Clearance 75 ml/min; Glucose 90 mg/dl (70-99); Potassium 4.3 mmol/L (3.5-5.1); Sodium 143 mmol/L (135-145); eGFR > 60.00
[2024-01-04 07:43] VITALS: BP 132/78
--- NOTE | 2024-01-04 09:02 | W.PN.HOSP.TC ---
Today's Communication/Plan
-
Case management working on getting home infusion set up
Assessment / Plan
Assessment / Plan
Physical Exam
General: No Apparent Distress
HEENT: Negative Oxygen
Musculoskeletal: Other (Right foot heal superficial wound and surrounding cellulitis)
Skin: Warm
Neuro: Awake, Alert and AO x 3
MSK: RLE lower aspect covered in dressing
Psych: Calm

MRI R Foot
Soft tissue defect involving the posteromedial and inferior aspect of the right heel. There is patchy increased T2 and STIR signal within the marrow adjacent to this defect, with some loss of posteromedial cortical definition of the calcaneus. These
findings are suspicious for osteomyelitis. It should be noted that MRI is highly sensitive for osteomyelitis but less specific.
Focal calcifications within the soft tissues off the posteromedial and inferior margin of the calcaneus, close to the soft tissue defect. It is possible that some of the abnormal signal within the marrow of the adjacent calcaneus is from reactive
inflammation associated with these calcifications.

Right heel cellulitis
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
-Foot x-ray did not show any osteomyelitis
-MRI of right foot report above - showing some BM signal in calcaneum
-Good palpable dorsalis pedis and posterior tibialis pulse
-ID evaluation requested and help appreciated.
-Superficial wound culture growing MSSA
-Pods evaluated and did bedside I&D of small bulla/superficial skin pocket 12/30
-S/p bone biopsy on 01/01 - f/u culture/path report
-ID input noted, will need 6 weeks of abx, will need PICC line
Essential HTN - uncontrolled
-Continue home dose of Norvasc/nebivolol
-Increased dose of amlodipine to 10mg/d
-As needed hydralazine for systolic blood pressure greater than 160
Hypothyroidism
-Maintain on home dose of levothyroxine
GERD
-Continue pantoprazole
Hyperlipidemia
-Continue statin
DVT PPx - Lovenox
Full code
Anticipated Discharge: 24 - 48 hours
Subjective/Interval History
-
Date of Service: January 04, 2024
Patient was seen and examined. He reported no new symptoms or complaints.
Objective Data
-
Labs:
Laboratory Results
01/04/24
05:47
Sodium 143
Potassium 4.3
Chloride 108 H
Carbon Dioxide 26
BUN 13
Creatinine 0.9
Glucose 90
Calcium 9.4
Vital Signs:
Vital Signs
Temp Pulse Resp BP Pulse Ox
97.8 F 53 19 132/78 98
01/04/24 07:43 01/04/24 07:43 01/04/24 07:43 01/04/24 07:43 01/04/24 07:43
I&O
01/03/24 01/04/24 01/05/24
06:59 06:59 06:59
Intake Total 770 / 770 960 / 960
Balance 770 / 770 960 / 960
[2024-01-04] MEDS: BYSTOLIC 5 MG PO (09:07)
[2024-01-04] MEDS: PROTONIX 40 MG PO (09:08)
[2024-01-04] MEDS: NORVASC 10 MG PO (09:08)
--- NOTE | 2024-01-04 11:59 | CM ---
Addendum entered by Kristi Bolden 01/04/24 15:21:
Per infusion company cost of medication and supplies is $170 per week, patient and spouse provided with this information and they are asking to review again with infusion company, referral sent to [facility] visiting nurses.
Original Note:
Chart reviewed and patient to return to home on IV infusion, outsole caser spoke with patient and spouse and referral sent to [facility] to check patient's benefit for home in fusion. All clinicals including, script for home IV ABX, PICC line
information faced to [facility].
Plan; Waiting for [facility] to review referral and check benefit for home infusion.
--- NOTE | 2024-01-04 13:53 | W.PN.ID1 ---
Date of Service
Date of Service: January 04, 2024
Today's Communication
Continue antibiotics.
Assessment / Plan
Right foot wound
Right heel osteomyelitis
- hx or remote significant surgical reconstruction of right ankle and hx osteomyelitis.
- ?new infection ?recurrence of prior infection
Hypothyroidism
GERD
HTN
Dyslipidemia
Recommendations:
Cultures show MSSA.
Continue cefazolin 2 g IV every 8 hours.
Will await bone cultures, along with pathology.
Follow white count and temperature curve.
Given osteomyelitis, will need a 6-week course of IV antibiotics.
Home infusion sheet placed on paper chart. PICC line placed.
Will follow in the office in approximately 2 to 3 weeks.
����������������������������������������������������������
Chief Complaint
-: Other (Osteomyelitis right ankle)
Subjective / Review of Systems
Review of Systems: No Fever and No Chills
Vital Signs / Physical Exam
Vital Signs
Vital Signs
Temp Pulse Resp BP Pulse Ox
97.8 F 53 19 132/78 98
01/04/24 07:43 01/04/24 07:43 01/04/24 07:43 01/04/24 09:08 01/04/24 07:43
Physical Exam
Constitutional: No Acute Distress, Comfortable and Non-toxic
Head: Normocephalic
Eyes: Sclera Anicteric
Pulmonary: Non Labored
Gastrointestinal: Non Distended
Extremities: Erythema (right medial ankle)
Wound: Other (right medial ankle; sutures in place)
Neurological: Awake and Alert
Objective Data
Lab Data
Lab Results
01/02/24 06:13
01/04/24 05:47
ESR 26 mm/hour (0-20) H 12/30/23 12:44
Estimated Creat Clear 75 ml/min 01/04/24 05:47
Total Bilirubin 0.6 mg/dl (0.2-1.3) 12/30/23 12:44
AST 28 U/L (17-59) 12/30/23 12:44
ALT 28 U/L (0-50) 12/30/23 12:44
Alkaline Phosphatase 100 U/L (38-126) 12/30/23 12:44
C-Reactive Protein 39.50 mg/L (0.0-10.00) H 12/30/23 12:44
Most recent labs reviewed.
Micro Results:
01/02/24 09:03 Tissue Culture - Preliminary
Heel - Right Staphylococcus species
Gram Stain - Preliminary
12/30/23 14:40 Wound Culture - Final
Foot - Right S aureus-Methicillin Sensitive
Gram Stain - Final
12/31/23 16:32 MRSA Screen - Final
Nose No Methicillin Resistant Staphylococcus aureus isolated.
Imaging:
12/31/2023 MRI right lower extremity: Soft tissue defect involving the posteromedial and inferior aspect of the right heel. There is patchy increased T2 and STIR signal within the marrow adjacent to this defect, with some loss of posteromedial
cortical definition of the calcaneus. These findings are suspicious for osteomyelitis. It should be noted that MRI is highly sensitive for osteomyelitis but less specific.
Focal calcifications within the soft tissues off the posteromedial and inferior margin of the calcaneus, close to the soft tissue defect. It is possible that some of the abnormal signal within the marrow of the adjacent calcaneus is from reactive
inflammation associated with these calcifications.
12/30/2023 X-ray right foot: No radiographic evidence for acute osteomyelitis: Please see full dictation for additional detail.
[2024-01-04 15:07] VITALS: BP 111/73
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
[2024-01-04] MEDS: LIPITOR 10 MG PO (17:43)
[2024-01-04] MEDS: LOVENOX 40 MG SC (17:43)
[2024-01-04 23:34] VITALS: BP 107/87
[2024-01-05] MEDS: ANCEF 10 IV (05:26)
[2024-01-05] MEDS: SYNTHROID 75 MCG PO (05:26)
[2024-01-05 05:57] LABS: Blood Urea Nitrogen 16 mg/dl (9-20); Calcium 9.4 mg/dl (8.4-10.2); Carbon Dioxide 26 mmol/L (22-30); Chloride 108 mmol/L (98-107); Estimated Creatinine Clearance 75 ml/min; Glucose 102 mg/dl (70-99); Potassium 4.3 mmol/L (3.5-5.1); Sodium 141 mmol/L (135-145); eGFR > 60.00
[2024-01-05 07:25] VITALS: BP 139/86
[2024-01-05] MEDS: BYSTOLIC 5 MG PO (08:26)
[2024-01-05] MEDS: PROTONIX 40 MG PO (08:26)
[2024-01-05] MEDS: NORVASC 10 MG PO (08:26)
--- NOTE | 2024-01-05 11:14 | CM ---
analytic manager reviewed patient's chart and spoke with patient this am and patient is to return to home with IV ABX from [facility] all clinicals faxed including chest xray and labs from this morning. Plan is to home today, spouse to transport with
[facility] visiting nurses will be out to patient's home today to teach home infusion at 3pm.
Plan; Home today [facility] infusion and [facility] visiting nurses.
[facility]
[phone]
Fax [phone]
M
--- NOTE | 2024-01-05 11:31 | W.PN.HOSP.TC ---
Today's Communication/Plan
-
Discharge today
Assessment / Plan
Assessment / Plan
Physical Exam
General: Not in acute distress
HEENT: Normocephalic
Skin: Warm. Dry.
Neuro: Awake, Alert and AAO x 3
MSK: RLE lower aspect covered in dressing
Psych: Calm

MRI R Foot
Soft tissue defect involving the posteromedial and inferior aspect of the right heel. There is patchy increased T2 and STIR signal within the marrow adjacent to this defect, with some loss of posteromedial cortical definition of the calcaneus. These
findings are suspicious for osteomyelitis. It should be noted that MRI is highly sensitive for osteomyelitis but less specific.
Focal calcifications within the soft tissues off the posteromedial and inferior margin of the calcaneus, close to the soft tissue defect. It is possible that some of the abnormal signal within the marrow of the adjacent calcaneus is from reactive
inflammation associated with these calcifications.

Right heel cellulitis
Right Heel osteomyelitis from MSSA
-Foot x-ray did not show any osteomyelitis
-MRI of right foot report above - showing some BM signal in calcaneum
-Good palpable dorsalis pedis and posterior tibialis pulse
-ID evaluation requested and help appreciated.
-Superficial wound culture growing MSSA
-Pods evaluated and did bedside I&D of small bulla/superficial skin pocket 12/30
-S/p bone biopsy on 01/01 - f/u culture/path report
-ID input noted, will need 6 weeks of abx, continue cefazolin 2 g IV every 8 hours.
-Continue wound care as per podiatry with vashe compress and cleanse, pat dry and cover with Aquacel Ag and dry dressing daily
-WBAT in post op shoe
-F/U wound care as outpatient in 1 week
-Follow-up outpatient with Dr. Luong in 2 to 3 weeks
Essential HTN - uncontrolled
-Continue home dose of Norvasc/nebivolol
-Increased dose of amlodipine to 10mg/d
-As needed hydralazine for systolic blood pressure greater than 160
Hypothyroidism
-Maintain on home dose of levothyroxine
GERD
-Continue pantoprazole
Hyperlipidemia
-Continue statin
DVT PPx - Lovenox
Full code
More than 30 minutes spent in discharge including
Final examination of the patient
Summarizing hospital stay
Instructions for continuing care to all relevant caregivers
Preparation of discharge records, prescriptions, and referral forms
Total time spent (in minutes): 38
Anticipated Discharge: Today
Subjective/Interval History
-
Date of Service: January 05, 2024
Patient was seen and examined. He denied any significant pain or any complaints.
Objective Data
-
Labs:
Laboratory Results
01/05/24
05:12
Sodium 141
Potassium 4.3
Chloride 108 H
Carbon Dioxide 26
BUN 16
Creatinine 0.9
Glucose 102 H
Calcium 9.4
Vital Signs:
Vital Signs
Temp Pulse Resp BP Pulse Ox
97.8 F 53 18 139/86 97
01/05/24 07:25 01/05/24 07:25 01/05/24 07:25 01/05/24 07:25 01/05/24 07:25
I&O
01/04/24 01/05/24 01/06/24
06:59 06:59 06:59
Intake Total 960 / 960 2400 / 2400
Balance 960 / 960 2400 / 2400
--- NOTE | 2024-01-05 12:02 | W.DS.TRANS ---
DC Summary - Yardage Control Operator Forming
-
Discharge Instructions:
Discharge Diagnosis/Procedures Right heel cellulitis
Right Heel osteomyelitis from MSSA
Essential Hypertension - uncontrolled
Hypothyroidism
GERD
Hyperlipidemia
Multiple lymph nodes in right groin on imaging
Peripheral Lower Extremities Ultrasound w/ RAYMUNDO
(as per radiologist's report):
'IMPRESSION: Bilateral ankle and toe brachial
indices within normal limits. Spectral Doppler
analysis demonstrates multiphasic waveforms from
bilateral common femoral to popliteal arteries
with no velocity elevation to suggest any
significant stenosis. Continuous Doppler
waveforms at the bilateral dorsalis pedis and
posterior tibial arteries also remain
multiphasic. Incidental note of multiple lymph
nodes noted in the right groin, the largest
measuring 2.25 x 0.9 x 1.8 cm.'
MRI of the Right Ankle (as per radiologist's
report):
'IMPRESSION: Soft tissue defect involving the
posteromedial and inferior aspect of the right
heel. There is patchy increased T2 and STIR
signal within the marrow adjacent to this defect
, with some loss of posteromedial cortical
definition of the calcaneus. These findings are
suspicious for osteomyelitis. It should be noted
that MRI is highly sensitive for osteomyelitis
but less specific.
Focal calcifications within the soft tissues off
the posteromedial and inferior margin of the
calcaneus, close to the soft tissue defect. It
is possible that some of the abnormal signal
within the marrow of the adjacent calcaneus is
from reactive inflammation associated with these
calcifications.'
Diet Low Sodium,Low Cholesterol,Low Fat
Activity Other activity
Additional Activity WBAT in post op shoe
Driving Restrictions Not until seen by your Dr
Other Services VN
Wound Care cleanse/compress w/vashe x 5 min, pat dry w/4x4/
aquacel Ag to incision/wound and cover with dry
dressing daily
Instructions:
Stand-Alone Forms:
Changes to Home Medications: Yes
Discharge Medications:
DC Medications w/original date entered in [employer]
pantoprazole 40 mg tablet,delayed release 40 mg PO DAILY GERD 04/21/22
simvastatin 20 mg tablet 20 mg PO QPM High cholesterol 04/21/22
levothyroxine 75 mcg tablet (Synthroid) 75 mcg PO DAILY Thyroid 12/30/23
naproxen sodium 220 mg tablet (Aleve) 440 mg PO BIDPRN PRN mild pain 12/30/23
nebivolol 5 mg tablet (Bystolic) 5 mg PO DAILY Blood Pressure 12/30/23
amlodipine 10 mg tablet 10 mg PO DAILY #30 tabs 01/05/24
cefazolin 10 gram solution for injection 2 g IV Q8H #10 ea 01/05/24
polyethylene glycol 3350 17 gram oral powder packet (HealthyLax) 17 g PO DAILYPRN PRN constipation #14 ea 01/05/24
Home Medication Changes
Amlodipine dose has been increased from 5 mg daily to 10 mg daily.
Cefazolin is your new intravenous antibiotic and you should take it exactly as per Dr. Luong's (Infectious Disease) instructions.
Home Cephalexin stopped.
HealthyLax is a new as needed laxative medication to help you if you have constipation.
Naproxen is on hold as they should not be take frequently due to side effects -- discuss this with your PCP.
Pending Results: Yes
Additional Pending Results:
Pathology and Microbiology results from hospitalization
Total time spent discharging patient (in min): 38
[2024-01-05 12:10] VITALS: BP 125/69
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
== END 2024-01-05 12:59 | disposition home health service (06) | DRG 478 ==
LOC: 4 WEST ACU 15:19
PROVIDERS: Clinical Nurse Specialist Family Health; Emergency Medicine; ADMITTING PHYSICIAN Hospitalist; ATTENDING PHYSICIAN Hospitalist; CONSULT PHYSICIAN Internal Medicine Infectious Disease; CONSULT PHYSICIAN Podiatrist Foot & Ankle Surgery; EMERGENCY PHYSICIAN Student in an Organized Health Care Education/Training Program; FAMILY PHYSICIAN Internal Medicine
PROC: 0QBL0ZX Excision of Right Tarsal, Open Approach, Diagnostic (ICD-10-PCS; 2024-01-02)
DX: M86.9 Osteomyelitis, unspecified (principal); L03.115 Cellulitis of right lower limb; I10 Essential (primary) hypertension; K21.9 Gastro-esophageal reflux disease without esophagitis; E78.5 Hyperlipidemia, unspecified; E03.9 Hypothyroidism, unspecified
CPT/HCPCS: 88304; 71045; 73610; 73630; 73718; 80048; 80053; 80202; 85025; 85652; 86140; 87070; 87147; 87176; 87186; 87205; 93922; 93925; 96365; 96366; 96367; 97161; 97165; 99285

== ENCOUNTER → 2024-01-28 18:58 | Outpatient (REF) | payer MEDICARE, OTHER, SELFPAY | LOC: RAD 18:58 | PROVIDERS: ATTENDING PHYSICIAN Podiatrist Foot & Ankle Surgery; FAMILY PHYSICIAN Internal Medicine | DX: L97.424 Non-pressure chronic ulcer of left heel and midfoot with necrosis of bone (principal); M86.171 Other acute osteomyelitis, right ankle and foot | CPT/HCPCS: 73650 ==

== ENCOUNTER → 2024-03-07 06:47 | Outpatient (REF) | payer MEDICARE, OTHER, SELFPAY | LOC: MRI 06:47 | PROVIDERS: ATTENDING PHYSICIAN Internal Medicine | DX: M19.019 Primary osteoarthritis, unspecified shoulder (principal) | CPT/HCPCS: 73221 ==

== ENCOUNTER → 2024-03-08 18:20 | Outpatient (REF) | payer MEDICARE, OTHER, SELFPAY | LOC: RAD 18:20 | PROVIDERS: ATTENDING PHYSICIAN Internal Medicine | DX: R91.8 Other nonspecific abnormal finding of lung field (principal) | CPT/HCPCS: 71046 ==

== ENCOUNTER 2024-06-09 07:21 | Outpatient (RCR) | payer MEDICARE, OTHER, SELFPAY | END 2024-06-09 23:59 | disposition home or self-care (01) | LOC: RPT 07:21 | PROVIDERS: ATTENDING PHYSICIAN Orthopaedic Surgery; FAMILY PHYSICIAN Internal Medicine | DX: M75.31 Calcific tendinitis of right shoulder (principal); M75.32 Calcific tendinitis of left shoulder; M19.011 Primary osteoarthritis, right shoulder; Z73.6 Limitation of activities due to disability; M62.81 Muscle weakness (generalized) | CPT/HCPCS: 97161 ==

== ENCOUNTER 2024-07-04 08:45 | Outpatient (RCR) | payer MEDICARE, OTHER, SELFPAY | END 2024-07-04 23:59 | disposition home or self-care (01) | LOC: RPT 08:45 | PROVIDERS: ATTENDING PHYSICIAN Orthopaedic Surgery; FAMILY PHYSICIAN Internal Medicine | DX: M75.31 Calcific tendinitis of right shoulder (principal); M75.32 Calcific tendinitis of left shoulder; M19.011 Primary osteoarthritis, right shoulder; Z73.6 Limitation of activities due to disability; M62.81 Muscle weakness (generalized) | CPT/HCPCS: 97010; 97110; 97112; 97140 ==

== ENCOUNTER 2024-07-27 12:35 | Inpatient (IN) | payer MEDICARE, OTHER, SELFPAY ==
[2024-07-27] VITALS (9 sets, daily range): BP systolic 122–164; BP diastolic 71–113; PULSE 71–90; BMI 28.3
[2024-07-27 09:53] LABS: Glucose - Point of Care 94 mg/dl (70-99)
--- NOTE | 2024-07-27 09:54 | ED.GENMED ---
History of Present Illness
General
Chief Complaint: Visual Problem
Source: patient
Exam Limitations: none
Time Seen by Provider: 07/27/24 09:48
Nursing documentation reviewed up to this point in time: agreed with
History of Present Illness
History of Present Illness:
Patient presents to ED after waking up this morning around 8 AM, with dizziness along with inability to see with his left eye. Patient reports at 4 AM, he woke up and went downstairs to watch TV, when he first noticed blurry vision to his left eye.
Patient fell asleep afterwards, and woke up at 8 AM with aforementioned symptoms. Denies headache. Denies loss of sensation or weakness. Denies difficulty with speech or swallowing. Denies difficulty with ambulation. Denies previous history of
similar symptoms. Denies recent illness. Patient reports initially going to sleep last night around 10:30 PM without any symptoms.
Past History
Past History
ED Past Medical History: HTN
ED Past Surgical History: Orthopedic and Other
Social History
Tobacco: Non-smoker
Alcohol: Occasional
Drug: None
Personal:
Living: with family
Review of Systems
Review of Systems
Allergies reviewed?: Yes
All Other Systems: ROS reviewed and negative except as documented in HPI and ROS
Constitutional: Reports no symptoms
Respiratory: Reports no symptoms
Cardiac: Reports no symptoms
ABD/GI: Reports no symptoms
Musculoskeletal: Reports no symptoms
Skin: Reports no symptoms
Neurological: Reports dizzy and other (loss of vision)
Phy Exam
Physical Exam
Physical Exam:
Physical Exam
General: mild distress, not acutely ill. afebrile
Head: nc/at. eomi
Neck: supple. normal range of motion.
Heart: s1/s2 regular rate and rhythm, no murmur.
Lungs: no acute respiratory distress. clear bilaterally
Abdomen: normal bowel sounds. not tender.
Neuro: alert and oriented x 3. no focal sensory/motor deficit. w right eye covered, able to note movement of gross object
Skin: no rash
Psychiatric: well kept. interactive and cooperative
Extremities: no edema. no calf tenderness.
Course
Orders/Labs/Results
Orders:
Orders
07/27/24 09:48
Electrocardiogram (*1) Stat
Reason for Study: Other
Other Reason for Exam: neuro symptoms
CT HEAD STROKE ALERT W/o Cont Urgent
Comment:
Reason For Exam: dizziness with visual loss
EKG- Treatment ONCE
07/27/24 09:56
CT HEAD/NECK ANG STROKE ALERT Urgent
Comment:
Reason For Exam: left eye vision loss
07/27/24 10:20
Basic Metabolic Panel Urgent
Complete Blood Count/With Diff Urgent
PTT Urgent
Prothrombin Time Urgent
Troponin I Urgent
07/27/24 10:28
Aspirin 325 mg PO NOW STA
Clopidogrel Bisulfate [Plavix] 300 mg PO NOW STA
07/27/24 10:33
MR Brain Without Contrast Routine
Comment:
Reason For Exam: visual loss, ? stroke
Recent pill cam endoscopy?: No
07/27/24 11:15
TOSHA, IgG Reflex to HEp-2 [S] Routine
Comment: May add to blood in lab
Erythrocyte Sed Rate Routine
Comment: may add to blood in lab
Folate Routine
Comment: May add to blood in lab
Lipid Profile [Cardiovascular Evaluation] Routine
Comment: May add to blood work in lab
TSH Reflex To Free T4 Routine
Comment: May add to blood in lab
Vitamin B12 Routine
Comment: May add to blood in lab or draw as routine
07/27/24 11:55
Admit/Transfer Patient As Directed
Co-Sign Provider:
Level of Care: Inpatient admission
Assign to:: Telemetry
Physician / Group: Dr. Jethro De León
Diagnosis: Acute Right Eye Vision Loss secondary to probable stroke
Reason for Telemetry: CVA/TIA
Date to Stop Telemetry: 07/30/24
Time to Stop Telemetry: 11:00
Reason for Hospitalization: Acute Right Eye Vision Loss secondary to probable stroke
Expected length of stay greater than two midnights?: Yes
ELOS- Estimated Length of Stay in days: 3
I certify the patient meets the requirements for IP care: Yes
Code Status As Directed
Resuscitation Status: Full Code
07/27/24 12:06
PRN Pain Medication Management As Directed
May give lesser potent ordered pain med per pt: Yes
preference::
Protocol:: Medication orders for pain may be administered in a
manner that supports deferring to patient preference
when the pt is:
- Requesting an ordered lesser potent pain medication.
Least to most potent pain medications are defined
as: acetaminophen < NSAID < tramadol < opioids
(morphine, oxycodone, hydromorphone).
- Requesting a lesser dose of the same medication IF
ORDERED.
- Requesting a less intrusive route of administration
if both routes are prescribed by the provider (PO <
IV).
07/27/24 12:12
MA [place] Routine
Comment:
Reason For Exam: intracranial stenosis
Recent pill cam endoscopy?: No
MA Neck With Contrast Routine
Reason For Exam: stenosis
Recent pill cam endoscopy?: No
07/27/24 13:01
Acetaminophen [Tylenol] 650 mg PO Q4HPRN PRN
07/27/24 13:01
Case Management Consult ONCE
Case Management Consult: Discharge Planning
Comment: stroke/tia
DIETARY IP CONSULT Routine
Reason for Consult: stroke/TIA
NEUROLOGY CONSULT Urgent
Consulting Provider: Vincenzo Martin
Was physician already notified: Yes
Reason for consult: Acute Vision Loss in Left Eye secondary to probable Stroke
[employer] Urgent
Activity As Directed
Activity Level: As Tolerated
NIH Stroke Scale As Directed
Directions: Per protocol
Comment: every shift and with any change in condition or mental status
Neurological Checks As Directed
Frequency: q4h
Additional Instructions:: q4h x 24h upon admission to the floor, then qshift & with any change in condition
and mental status
Patient Education As Directed
Type: Stroke education packet
Comment: provide to patient and family
Pneumatic Compression Sleeves As Directed
Type: Knee high
Swallow Screening CVA/TIA ONLY As Directed
Comment: NPO until swallowing screening completed
If patient FAILS swallow screening:: NPO, Speech Therapy consult, Aspiration Precautions
If patient PASSES swallow screening, diet:: Cholesterol Lowering
Above diet order entered?: Yes- passed screening
Vital Signs As Directed
Frequency: Per unit guidelines
Ot Eval And Treat Routine
Pt Eval And Treat Routine
Activity Level: As Tolerated
Speech Therapy Eval & Treat Routine
DX Deep Vein Thrombosis Video Routine
07/27/24 18:00
Atorvastatin [Lipitor] 40 mg PO QPM
Enoxaparin Sodium [Lovenox] 40 mg SC QPM
07/28/24 06:00
Levothyroxine [Synthroid] 75 mcg PO DAILY@0600
07/28/24 07:19
Complete Blood Count/No Diff IN AM
Comprehensive Metabolic Panel IN AM
07/28/24 08:00
Amlodipine [Norvasc] 10 mg PO DAILY
Ascorbic Acid [Vitamin C] 500 mg PO DAILY
Aspirin Low Dose EC [Aspir Low (Enteric Coated)] 81 mg PO DAILY
Cholecalciferol (Vitamin D3) [VITAMIN D3 (cholecalciferol)] 25 mcg PO DAILY
Clopidogrel Bisulfate [Plavix] 75 mg PO DAILY
Cyanocobalamin [Vitamin B-12] 1,000 mcg PO DAILY
Pantoprazole [Protonix] 40 mg PO DAILY
Vitamin E 400 units PO DAILY
Abnormal Lab Results
07/27/24 07/27/24
10:20 11:15
WBC 4.2 L 10^3/uL
(4.8-10.8)
RBC 4.63 L 10^6/uL
(4.70-6.10)
MCH 32.0 H pg
(27.0-31.0)
Monocytes % 10.8 H %
(1.7-9.3)
Glucose 104 H mg/dl
(70-99)
Vitamin B12 948 H pg/ml
(239-931)
07/27/24 10:20
07/27/24 10:20
Vital Signs
Initial and Last Documented VS:
Initial Vital Signs
Pulse Resp Pulse Ox
72 15 97
07/27/24 09:52 07/27/24 09:52 07/27/24 09:52
Last Documented Vital Signs
Temp Pulse Resp BP Pulse Ox
98.8 F 81 18 144/82 100
07/28/24 11:30 07/28/24 11:30 07/28/24 11:30 07/28/24 11:30 07/28/24 11:30
MDM/Problems Addressed
MDM/Problems Addressed:
Patient evaluated in ED immediately upon arrival, along with neurology, Dr. Martin, as part of stroke alert.
CT head/CTA head and neck without acute findings. Dr. Martin does not feel that pt is not a candidate for TnK, as onset of symptoms > 4 hrs.
History and exam concerning for ophthalmic stroke. Patient will be admitted for further evaluation and treatment. Aspirin and Plavix will be started.
*Critical Care Note
Total Time (30-74mins, 75-104mins- exclusive of procedures): Not Applicable
ED Attending Note
-
Portions of this chart may have been created with voice recognition software.� Occasional wrong word or��sound alike� substitutions may have occurred due to the inherent limitations of voice recognition software.
Discharge Plan
Departure
Patient Disposition: Admit
Date of Disposition: 07/27/24
Time of Disposition: 10:50
Admit to: Telemetry
Presentation/result/management discussed w/ accepting MD/DO: Hospitalist
Discharge Problem:
Visual loss
Interventions
Interventions:
*Risk Screen - Suicide Last Done: 07/27/24 11:04
*General Assessment Last Done: 07/27/24 11:04
*Neglect/Abuse Screening Last Done: 07/27/24 13:50
*ED- Fall Risk Assessment Last Done: 07/27/24 11:04
*ED COVID-19 Vaccine History Last Done: 07/27/24 11:04
*Nursing Disposition Last Done: 07/27/24 13:50
ED- Neurological Assessment Last Done: 07/27/24 11:04
ED-EENT Assessment Last Done: 07/27/24 11:04
ED Swallowing Screen Last Done: 07/27/24 11:04
Discharge Date and Time
Discharge Date/Time: 07/27/24 13:52
--- NOTE | 2024-07-27 10:13 | CON.NEURO4 ---
Addendum entered and electronically signed by Vincenzo Martin MD 07/27/24 12:30:
Studies reviewed.
I have personally examined the patient. I reviewed and agree with the CHIEF DISPATCHER SERVICE's Note.
My addenda:
Awake, alert, interactive. No acute distress.
Speech intact.
Follows 2-step requests w/o difficulty. No tremor.
Extra-ocular movements grossly intact. Reduction of visual field in the left eye laterally, not reproducible on the contralateral side
Facial movements full and symmetric. Hearing intact to normal conversational volume.
Normal UE movements bilaterally.
Neck: full ROM.
Chest: no dyspnea
Heart: no JVD
Ext: (-) Clubbing, (-) Cyanosis, (-) Edema
IMPRESSIONS/RECOMMENDATIONS:
Abrupt onset of visual loss in the left eye
Differential diagnosis includes branch retinal artery occlusion, migraine with aura although the patient is without any headache, as well as posterior circulation acute ischemic stroke
As the patient's onset of symptoms is now greater than 4-1/2 hours, would provide loading doses of antiplatelet agents, aspirin and clopidogrel, followed by routine dosing of both for 21 days, followed by aspirin alone, lifelong
Check lipid profile; provide atorvastatin 40 mg as replacement of simvastatin dosing in hopes of better control over cholesterol in future
As the patient has what looks like significant stenosis involving the contralateral side, reevaluation of his left ICA stenosis by means of MRA head and neck may be of benefit to to ensure that there is not more than 50% stenosis which may be
producing symptomatology
Will ask for vascular surgery evaluation to determine if the patient is a candidate for remediation of stenosis on the left
Ophthalmology evaluation will be beneficial
Rehabilitation evaluation
Goal of normotension 24 hours after onset of symptoms
D/W patient
Will continue to follow pending results
Original Note:
Documented by User: Margaret Pham NP 07/27/24 12:09
Consultation - Neurology 4
-
CONSULTING PHYSICIAN: Vincenzo Martin MD
REFERRING PHYSICIAN: ER/Dr. Abrams
DICTATED BY: ESTHER Gillis
DATE/TIME OF REQUEST: 07/27/24
DATE/TIME OF CONSULTATION: 07/27/24
Reason for Consultation: Stroke Alert
History of Present Illness:
This is a 69-year-old right-handed male who has presented to the hospital with report of left eye vision loss. Patient reports going to bed last night (07/26/24) at 2230 in his usual state. He woke up at 0400 this morning and went downstairs to
watch TV, when he noticed that his left eye vision was blurry. He proceeded to fall asleep and didn't wake up again until 0800, when he realized he could barely see out of his left eye, prompting him to come to the ER. CT head was obtained on
arrival and is negative for any acute abnormalities. CTA head/neck demonstrates 70% L ICA stenosis but no LVO. NIHSS is 2 for almost complete vision loss in the left eye only. He denies any headache, dizziness, speech/swallow difficulty, numbness,
weakness, chest pain, palpitations, and shortness of breath. He is not a candidate for TNK/IAT due to outside of time window and no LVO. He reports a history of ocular migraines but denies any history of TIA, stroke, or symptoms similar to this in
the past. He is not taking any blood-thinning medications.
Past Medical History: HTN, HLD, hypothyroidism, GERD, trigger finger
Surgical History: umbilical hernia repair, left knee arthroscopy
Family History: Reviewed and noncontributory.
Social History: Occasional alcohol. Denies tobacco and illicit drug use.
Allergies: Ketorolac.
Home Medications: See below.
Review of Symptoms:
Patient denies any fever, headache, chest pain, shortness of breath, GI or symptoms.
�Per the HPI.�All systems are reviewed negative except above.
Physical Exam:
The patient is afebrile, abdomen is nondistended, breathing is unlabored, skin is warm and dry, no edema.
NIH Stroke Scale:
I performed the NIH stroke scale on the patient on 07/27/24 at 1000. The patient scored 2 points on the NIH stroke scale assessment, which were assigned as follows: See below.
Neurologic Examination:
The patient is awake, alert and oriented x 3. He is able to follow commands and answer questions appropriately. There is no aphasia or dysarthria. On cranial nerve assessment, pupils are 3 mm bilateral, round. +APD in left eye. Visual head are
full in the right eye. Left eye has vision mostly in the LUQ only. Extraocular movements are intact. Facial sensations are intact and bilaterally symmetrical, there is no facial asymmetry. Hearing is intact bilaterally to normal conversation volume.
Tongue palate and uvula are midline. Sternocleidomastoid strengths are full bilaterally. Motor strengths are 5/5 bilateral upper and lower extremities on medical research [place] scale. There is no drift or involuntary movement noted. There was no
extinction noted on double simultaneous stimulation. Coordination is intact by finger to nose bilaterally.
Lab Results: See below.
Neuro Imaging:
1. CT Head 07/27/24: No acute intracranial abnormality. ASPECT score: 10.
2. CTA Head/Neck 07/27/24: No findings to suggest internal carotid artery or vertebral artery dissection bilaterally. Moderate to marked atherosclerosis of the carotid bifurcations and proximal internal carotid arteries bilaterally with borderline
hemodynamically significant stenosis of the proximal right internal carotid artery at approximately 70% stenosis and nonhemodynamically significant stenosis of the proximal left internal carotid artery at approximately 50% stenosis. No findings to
suggest proximal anterior middle cerebral artery intracranial stenosis or vessel cut off bilaterally.
Differentials for the patient's presentation include:
1. Left eye vision loss; etiology BRAO vs ischemic occipital lobe stroke.
2. R ICA 70% stenosis, asymptomatic.
3. HTN.
4. HLD.
Patient has the following risk factors for their symptoms: HTN, HLD
IV Tenecteplase/IAT candidacy: Not a candidate due to outside of time window, no LVO.
Recommendations:
-Provide a loading dose of aspirin and clopidogrel x1 now. Then continue DAPT with aspirin and clopidogrel for 21 days, followed by aspirin monotherapy.
-Permissive hypertension SBP<220, DBP<120 until 0400 on 07/28/24, then goal normotension.
-MRI brain noncontrast pending.
-LDL goal <70. LDL is 97. Home simvastatin increased from 20mg to 40mg daily.
-Goal normoglycemia, hbA1c is pending.
-NIHSS and neurological checks per unit guidelines.
-Provide patient with a stroke education packet.
-PT/OT evaluations.
-Will need ophthalmology evaluation as soon as possible.
-Eventual vascular surgery evaluation for R ICA 70% stenosis.
-DVT prophylaxis.
Discussed patient care with: Dr. Martin, the patient
Vital Signs and Labs
-
Vital Signs and Labs:
Vital Signs
Pulse Resp BP Pulse Ox
65 17 142/92 98
07/27/24 11:00 07/27/24 11:00 07/27/24 11:00 07/27/24 11:00
Lab Results
07/27/24 10:20
07/27/24 10:20
PT 13.0 Sec (11.4-14.6) 07/27/24 10:20
INR 0.93 07/27/24 10:20
APTT 30.3 Sec (23.4-35.0) 07/27/24 10:20
Sodium 137 mmol/L (135-145) 07/27/24 10:20
Potassium mmol/L (3.5-5.1) 07/27/24 10:20
BUN 18 mg/dl (9-20) 07/27/24 10:20
Glucose 104 mg/dl (70-99) H 07/27/24 10:20
Calcium 9.3 mg/dl (8.4-10.2) 07/27/24 10:20
LDL Cholesterol, Calc 97 mg/dl 07/27/24 11:15
Medications
-
Active Medications
Generic Name Dose Route Start Last Admin
Trade Name Mireya GOLD Reason Stop Dose Admin
Aspirin 81 mg 07/28/24 08:00
Aspirin 81 Mg (Enteric Coated) Tablet PO 08/25/24 07:59
DAILY JOSE MANUEL
Clopidogrel Bisulfate 75 mg 07/28/24 08:00
Clopidogrel 75 Mg Tablet PO 08/17/24 08:01
DAILY JOSE MANUEL
Home Medications
�Medication �Instructions �Recorded
pantoprazole 40 mg tablet,delayed 40 mg PO DAILY GERD 04/21/22
release
simvastatin 20 mg tablet 20 mg PO QPM High cholesterol 04/21/22
levothyroxine 75 mcg tablet 75 mcg PO DAILY Thyroid 12/30/23
(Synthroid)
amlodipine 10 mg tablet 10 mg PO DAILY #30 tabs 01/05/24
ascorbic acid (vitamin C) 500 mg 500 mg PO DAILY 07/27/24
tablet (Vitamin C)
cholecalciferol (vitamin D3) 25 25 mcg PO DAILY 07/27/24
mcg (1,000 unit) tablet (Vitamin
D3)
cyanocobalamin (vitamin B-12) 1,000 mcg PO DAILY 07/27/24
1,000 mcg tablet
meloxicam 15 mg tablet 15 mg PO DAILY 07/27/24
vitamin E 268 mg (400 unit) capsule 268 mg PO DAILY 07/27/24
NIH Stroke Score
Subsequent NIH Scale
Date of Subsequent NIH Scale: 07/27/24
Time of Subsequent NIH Scale: 10:00
NIH Stroke Score
Level of Consciousness: 0 - Alert
LOC Questions: 0-Answers both correctly
LOC Commands: 0-Performs both correctly
Best Horizontal Gaze: 0-Normal
Visual Head: 2=Full hemianopia
Facial Palsy: 0=Normal, symmetrical
Motor - Right Arm: 0=No drift 10 seconds
Motor - Left Arm: 0=No drift 10 seconds
Motor - Right Le-No drift 5 seconds
Motor - Left Le-No drift 5 seconds
Limb Ataxia: 0-Absent
Sensation: 0-Normal
Best Language: 0-No aphasia
Dysarthria: 0-Normal
Extinction and Inattention: 0-No abnormality
Total Score:: 2
Modified Freedom (mRS) Score
Modified Freedom Scale (mRS): No significant disability. Able to carry out usual activities.
Score: 1
Alteplase Contraindication
Inclusion and Exclusion criteria reviewed: Yes
Reasons for NON-Tx with Thrombolytics ABSOLUTE Exclusions: Greater than 4.5 hrs from onset of sxs
IAT Contraindications: Imaging doesn't show large vessel occlusion as cause of stroke

Documented by User: Vincenzo Martin MD 07/27/24 12:16
NIH Stroke Score
NIH Stroke Score
Total Score:: 2
Modified Freedom (mRS) Score
Score: 1
[2024-07-27 10:29] LABS: % Basophils 0.5 % (0-2); % Eosinophils 3.1 % (0-6); % Lymphocytes 35.4 % (20.5-51.1); % Monocytes 10.8 % (1.7-9.3); % Neutrophils 50.2 % (42.2-75.2); Absolute Eosinophils 0.1 10^3/uL (0-0.7); Absolute Lymphocytes 1.5 10^3/uL (1.2-3.4); Absolute Monocytes 0.5 10^3/uL (0.1-0.6); Absolute Neutrophils 2.1 10^3/uL (1.4-6.5); Hematocrit 41.6 % (39.0-52.0); Hemoglobin 14.8 g/dL (13.0-18.0); Mean Corp Hgb Conc. 35.6 g/dL (33.0-37.0); Mean Corpuscular Volume 89.8 fL (80.0-94.0); Mean Platelet Volume 9.1 fL (7.4-10.4); Nucleated Red Blood Cells % 0 % (-); Platelet Count 191 10^3/uL (130-400); Red Blood Cell Count 4.63 10^6/uL (4.70-6.10); Red Cell Dist. Width 13.6 % (11.5-14.5); White Blood Cell Count 4.2 10^3/uL (4.8-10.8)
[2024-07-27] MEDS: PLAVIX 300 MG PO (10:33)
[2024-07-27] MEDS: ASPIRIN 325 MG PO (10:33)
[2024-07-27 10:46] LABS: INR 0.93
[2024-07-27 10:47] LABS: APTT 30.3 Sec (23.4-35.0)
[2024-07-27 10:51] LABS: Blood Urea Nitrogen 18 mg/dl (9-20); Calcium 9.3 mg/dl (8.4-10.2); Carbon Dioxide 25 mmol/L (22-30); Chloride 104 mmol/L (98-107); Glucose 104 mg/dl (70-99); Sodium 137 mmol/L (135-145); eGFR > 60.00
[2024-07-27 10:54] LABS: Troponin I < 0.012 ng/ml
[2024-07-27 11:44] LABS: HDL Cholesterol 45 mg/dl; LDL Cholesterol, Calculated 97 mg/dl; Total Cholesterol 153 mg/dl (50-199); Triglyceride 59 mg/dl (10-149); Very Low Density Lipoprotein 11 mg/dl (0-30)
--- NOTE | 2024-07-27 11:55 | CM ---
Patient seen at bedside with resident also present in ED. Patient states that he lives with his in a 3 story home with no DME at present. Patient PCP is Dr. Chung and he uses the [facility] in [place] for pharmacy needs. Patient has had
[facility] and [facility] in the past for IV antibiotic treatment. Patient plan is home with no needs. CM will continue to follow for discharge planning needs.
Plan; home with no needs vs home with VN
--- NOTE | 2024-07-27 12:13 | W.PN.UPDATE ---
Update Note
Progress Note Update
I personally performed a history and physical exam of the patient and discussed management with the resident. I reviewed the resident's note and agree with the documented findings and plan of care HPI/CC.
69-year-old male who presents with blurry vision in the left eye. Symptoms initially started at 4 AM when he woke up to watch some TV. Symptoms got worse around 8 AM at which time he nearly lost all of his vision in his left eye.
Gen: NAD, AAOx3.
Eyes: EOMI, PERRLA, no scleral icterus. L eye with partially intact vision in the L temporal hemifield. All other visual israel in the left eye with visual deficit.
Neck: supple.
CV: RRR, +S1/S2, no m/r/g.
Resp: CTAB, no rales, wheezes, or rhonchi.
Abd: +BS, soft, NT, ND
Skin: No rashes.
Neuro: CN 2-12 intact, non-focal.
Psych: Normal mood and affect.
Lab Results
07/27/24 07/27/24 07/27/24
09:51 10:20 11:15
WBC 4.2 L
RBC 4.63 L
Hgb 14.8
Hct 41.6
MCV 89.8
MCH 32.0 H
MCHC 35.6
RDW 13.6
Plt Count 191
MPV 9.1
Abs Immat Gran (auto) 0.0
Absolute Neuts (auto) 2.1
Absolute Lymphs (auto) 1.5
Absolute Monos (auto) 0.5
Absolute Eos (auto) 0.1
Absolute Basos (auto) 0.0
Immature Gran % 0.0
Neutrophils % 50.2
Lymphocytes % 35.4
Monocytes % 10.8 H
Eosinophils % 3.1
Basophils % 0.5
Nucleated RBC % 0
PT 13.0
INR 0.93
APTT 30.3
Sodium 137
Potassium
Chloride 104
Carbon Dioxide 25
BUN 18
Creatinine 0.9
eGFR > 60.00
Glucose 104 H
Calcium 9.3
Total Bilirubin Cancelled
AST Cancelled
ALT Cancelled
Alkaline Phosphatase Cancelled
Troponin I < 0.012
Total Protein Cancelled
Albumin Cancelled
Triglycerides 59
Total Cholesterol 153
LDL Cholesterol, Calc 97
VLDL Cholesterol, Calc 11
HDL Cholesterol 45
POC Glucose 94
CT brain: No acute intracranial abnormality.
CTA head/neck: No findings to suggest internal carotid artery or vertebral artery dissection bilaterally. Moderate to marked atherosclerosis of the carotid bifurcations and proximal internal carotid arteries bilaterally with borderline
hemodynamically significant stenosis of the proximal right internal carotid artery at approximately 70% stenosis and nonhemodynamically significant stenosis of the proximal left internal carotid artery at approximately 50% stenosis. No findings to
suggest proximal anterior middle cerebral artery intracranial stenosis or vessel cut off bilaterally.
ECG (read by me): NSR @ 69, L-axis, normal intervals aside from QTc 462ms, RBB, no acute ST/TW changes
Stroke-like symptoms:
-symptoms persist at this time
-admit to CVA pathway
-MRI brain
-tele
-out of window for TNK as per Dr. Martin
-start statin
-ASA/Plavix
-neuro following
-with 70% left-sided R-ICA stenosis c/s vascular
-No NSAIDs (will not continue pt's home Mobic)
Other problems:
Essential HTN: cont Norvasc
Hypothyroidism: Continue Levoxyl
FULL/Lovenox
[2024-07-27 12:14] LABS: TSH Reflex To Free T4 1.46 uIU/ml (0.47-4.68)
[2024-07-27 12:31] LABS: Erythrocyte Sed Rate 3 mm/hour (0-20)
[2024-07-27 12:50] LABS: Folate 9.1 ng/ml (2.76-20); Vitamin B12 948 pg/ml (239-931)
--- NOTE | 2024-07-27 13:03 | HPS.HSE ---
Family Physician
-
Family Physician: Jeb Chung
Chief Complaint
-
Acute left-sided vision loss
History of Present Illness
69-year-old male with a past medical history of hypertension and hyperlipidemia [facility] due to recent left-sided vision loss. Patient's vision loss started around 4 AM early this morning when patient went
got up to see television. He had some mild blurriness in his left eye at that time and it did not come with any pain. Patient went to sleep again and got up around 8 AM when he noticed that he had further worsening of his vision, localized to the
left eye. He had blurriness on the left side of the left visual field, and it had progressed now to the right side of the visual field being black. When he had went to sleep earlier last night around 10:30 PM, he had no symptoms. Patient reported
that his vision is still markedly reduced in the left eye and his symptoms have not improved at all. Patient reports not having any other symptoms along with this vision loss. He did not notice any motor or sensory defects, any chest pain,
shortness of breath, difficulty with speech or swallowing, difficulty walking, any headaches, or any recent illnesses.
Medical History
Past Medical History
Past Medical History: Reports HTN and Hypercholesterolemia
Past Surgical History: Reports Orthopedic
Social History
Tobacco: Non-smoker
Alcohol: Occasional
Drug: None
Personal:
Living: With Family
Family History
Family History: CAD (Mother) and Diabetes (Mother)
Allergies / Home Medications
Allergies reflects when Allergies were last updated in [facility].
Home Medications with original date entered in [facility]
Allergy/Medication List:
Allergies
Allergy/AdvReac Type Severity Reaction Status Date / Time
ketorolac [From Toradol] Allergy Nausea / Verified 07/27/24 09:49
Vomiting
Home Medications
pantoprazole 40 mg tablet,delayed release 40 mg PO DAILY GERD 04/21/22
simvastatin 20 mg tablet 20 mg PO QPM High cholesterol 04/21/22
levothyroxine 75 mcg tablet (Synthroid) 75 mcg PO DAILY Thyroid 12/30/23
amlodipine 10 mg tablet 10 mg PO DAILY #30 tabs 01/05/24
ascorbic acid (vitamin C) 500 mg tablet (Vitamin C) 500 mg PO DAILY 07/27/24
cholecalciferol (vitamin D3) 25 mcg (1,000 unit) tablet (Vitamin D3) 25 mcg PO DAILY 07/27/24
cyanocobalamin (vitamin B-12) 1,000 mcg tablet 1,000 mcg PO DAILY 07/27/24
meloxicam 15 mg tablet 15 mg PO DAILY 07/27/24
vitamin E 268 mg (400 unit) capsule 268 mg PO DAILY 07/27/24
Review of Systems
-
History Source: Patient
A 12 point ROS was completed and negative except as noted: Yes
Constitutional: Denies Fever, Fatigue or Chills
EENT: Reports No Symptoms
Respiratory: Denies Cough or Trouble Breathing
Cardiac: Denies Chest Pain, Palpitations or Syncope
Abdomen/GI: Denies Abdominal Pain, Nausea or Vomiting
: Reports No Symptoms
Musculoskeletal: Reports No Symptoms
Skin: Reports No Symptoms
Neurological: Reports Other (Left eye vision loss)
Endocrine: Reports No Symptoms
Psych: Reports Calm
Physical Exam
Vital Signs
Vital Signs
Pulse Resp BP Pulse Ox
66 16 146/101 98
07/27/24 12:30 07/27/24 12:30 07/27/24 12:00 07/27/24 12:30
Physical Exam
General: Well Developed, Well Nourished, No Apparent Distress and Conversant
HEENT: NormoCephalic and Anicteric
Respiratory: Clear and Non Labored Respirations
Cardiac: S1/S2 and Regular Rhythm
GI: Soft, Non Tender and Non Distended
Musculoskeletal: No Clubbing, No Cyanosis and No Edema
Skin: Warm
Neuro: Awake, Alert, Oriented, No Motor Deficits, Cranial Nerves Intact, No Sensory Deficits and Other (Left eye: Left visual field with increased blurriness, right visual field dark); No Slurred Speech or Facial Droop
Psych: Calm
Laboratory Results
-
07/27/24 10:20
07/27/24 10:20
Laboratory Results
PT 13.0 Sec (11.4-14.6) 07/27/24 10:20
INR 0.93 07/27/24 10:20
APTT 30.3 Sec (23.4-35.0) 07/27/24 10:20
Total Bilirubin Cancelled 07/27/24 10:20
AST Cancelled 07/27/24 10:20
ALT Cancelled 07/27/24 10:20
Alkaline Phosphatase Cancelled 07/27/24 10:20
Troponin I < 0.012 ng/ml 07/27/24 10:20
Data Reviewed
-
CT Scan: Report Reviewed by me, Discussed with Physician and Discussed with Patient
Lab Data: Labs Reviewed by me, Discussed with Physician and Discussed with Patient
Impression/Plan
-
Assessment:
69-year-old male with a past medical history of hypertension and hyperlipidemia comes to the [facility] ED due to recent left eye vision loss that started around 4 AM this morning. Patient underwent imaging with both CT head and CTA head
which did not show any acute strokes. Neurology was consulted. Patient was admitted to the hospital for suspected stroke and will undergo further imaging with MR. Patient was started on aspirin and clopidogrel. He was not a candidate for TNK as
he was outside the window. Patient admitted to telemetry.
CT brain: No acute intracranial abnormality.
CTA head/neck: No findings to suggest internal carotid artery or vertebral artery dissection bilaterally. Moderate to marked atherosclerosis of the carotid bifurcations and proximal internal carotid arteries bilaterally with borderline
hemodynamically significant stenosis of the proximal right internal carotid artery at approximately 70% stenosis and nonhemodynamically significant stenosis of the proximal left internal carotid artery at approximately 50% stenosis. No findings to
suggest proximal anterior middle cerebral artery intracranial stenosis or vessel cut off bilaterally.
Plan:
# Acute left eye vision loss secondary to probable stroke
-Patient still reports persistent symptoms
-Admitted to the CVA pathway
-Admitted to telemetry
-Neurology consulted, input appreciated
-Patient will undergo further imaging with MRI as per neuroteam
-Patient was out of the window for TNK
-Was started on aspirin and Plavix
-Patient was also found to have 70% left-sided R�ICA stenosis as per CTA of head and neck
-Vascular surgery consulted, input appreciated
-NSAIDs contraindicated for now, will hold patient's home Mobic
-Follow stroke protocols, neurological checks as needed
-Start atorvastatin 40 mg, DC home simvastatin
# Hypertension
-Continue amlodipine 10 mg daily
# Hyperlipidemia
-DC home simvastatin as patient will be on atorvastatin 40 mg
# Hypothyroidism
-Continue levothyroxine
Full code-patient wanted to be full code until he spoke with his , will discuss further
DVT prophylaxis-Lovenox
--- NOTE | 2024-07-27 14:00 | PTCARENOTE ---
pt admitted from ED to room 1144-01. pt ambulated from stretcher to bed without difficulty. NIH 1 for left eye vision loss right visual field. otherwise neurologically intact. Sr on telemetry heart rate in 60s. pulses palpable. old healing venous
ulcer to right heel, scabbed. see worklist for full nursing assessment and interventions.
--- NOTE | 2024-07-27 15:00 | PTCARENOTE ---
confirmed with MD that admission diagnosis is supposed to read right eye vision loss- stated yes it is right visual field of let eye
--- NOTE | 2024-07-27 15:05 | OR.RPT ---
Addendum entered and electronically signed by Stevenson Guzman MD 07/27/24 16:04:
NOTE THIS WAS ERRONEOUSLY ENTERED AN 'OPERATIVE NOTE.' SHOULD READ 'UPDATE NOTE.'
Original Note:
Operative Report
Operative Report
Seen and examined with FAMILIA Vega, full consultation to follow. Briefly 69-year-old male with history of hypertension/hyperlipidemia who noted early this morning left-sided vision loss. Initially started as blurriness in the left lateral eye and
then resulted in essentially complete loss. He notes that he can see slightly peripherally but otherwise everything looks dark in the left visual field. Never had prior symptoms like this. No episodes of unilateral numbness or weakness or speech
dysarthria. No prior history of strokes. Denies any tobacco use history.
On exam he is awake and alert. He is oriented x 3. Breathing is unlabored. 2+ upper extremity radial pulses and 2+ carotid pulsations palpable bilaterally. Neurologically no focal deficits. Abdomen is soft, nondistended, nontender. 2+ femoral,
popliteal, pedal pulses palpable bilaterally. Feet are warm. I reviewed CT angiogram of the head and neck he completed 07/27/2024. At the right carotid bifurcation spilling into the right internal carotid artery has a high-grade stenosis likely
resulting at least 70% stenosis. On the left side in the carotid bifurcation there is a moderate amount of plaque with posterior soft plaque but I agree with the radiologist there is not a definitive stenosis greater than 50%.
Plan/ Left eye amaurosis type symptoms. Cannot definitively say this amaurosis and not ophthalmologic in nature. His left carotid stenosis which would result in amaurosis does not seem to be over 50%. Therefore there may not be a role for
revascularization. Agree with antiplatelet therapy for now. Would favor carotid duplex to better image. Agree with MRI of the brain (if this was an occipital stroke or something that could result in left eye vision loss in which case treating the
right carotid would be of benefit). Will follow-up MRI and carotid duplex results. Pending that could consider revascularization if needed.
--- NOTE | 2024-07-27 15:19 | CON.VAS ---
Addendum entered and electronically signed by Stevenson Guzman MD 07/27/24 16:05:
SEEN AND EXAMINED WITH FAMILIA GASPAR - AGREE WITH FINDINGS NOTED BELOW. SEE MY SEPARATE UPDATE NOTE (WAS ERRONEOUSLY ENTERED 'OPERATIVE NOTE').
Original Note:
Consultation
Consultation Request
Performing Provider: Thomas
Reason for Consultation: Left visual loss
Medical History
-
Chief Complaint: Left eye visual loss
History of Present Illness:
69-year-old male with history of hypertension/hyperlipidemia who noted early this morning left-sided vision loss. Initially started as blurriness in the left lateral eye and then resulted in essentially complete loss. He notes that he can see
slightly peripherally but otherwise everything looks dark in the left visual field. Never had prior symptoms like this. No episodes of unilateral numbness or weakness or speech dysarthria. No prior history of strokes. Denies any tobacco use
history.
On exam he is awake and alert. He is oriented x 3. Breathing is unlabored. 2+ upper extremity radial pulses and 2+ carotid pulsations palpable bilaterally. Neurologically no focal deficits. Abdomen is soft, nondistended, nontender. 2+ femoral,
popliteal, pedal pulses palpable bilaterally. Feet are warm. I reviewed CT angiogram of the head and neck he completed 07/27/2024. At the right carotid bifurcation spilling into the right internal carotid artery has a high-grade stenosis likely
resulting at least 70% stenosis. On the left side in the carotid bifurcation there is a moderate amount of plaque with posterior soft plaque but I agree with the radiologist there is not a definitive stenosis greater than 50%.
Past Medical History
Past Medical History: Other (Hypertension and hypercholesterolemia)
Past Surgical History: Orthopedic
Social History
Tobacco: Non-Smoker
Alcohol: Occasional
Drug: None
Personal:
Living: With Family
Family History
Family History: Reviewed & Not Pertinent
Allergies / Home Medications
Allergy/AdvReac Type Severity Reaction Status Date / Time
ketorolac [From Toradol] Allergy Nausea / Verified 07/27/24 09:49
Vomiting
�Medication �Instructions �Recorded �Confirmed �Type
pantoprazole 40 mg tablet,delayed 40 mg PO DAILY GERD 04/21/22 07/27/24 History
release
simvastatin 20 mg tablet 20 mg PO QPM High cholesterol 04/21/22 07/27/24 History
levothyroxine 75 mcg tablet 75 mcg PO DAILY Thyroid 12/30/23 07/27/24 History
(Synthroid)
amlodipine 10 mg tablet 10 mg PO DAILY #30 tabs 01/05/24 07/27/24 Rx
ascorbic acid (vitamin C) 500 mg 500 mg PO DAILY 07/27/24 07/27/24 History
tablet (Vitamin C)
cholecalciferol (vitamin D3) 25 25 mcg PO DAILY 07/27/24 07/27/24 History
mcg (1,000 unit) tablet (Vitamin
D3)
cyanocobalamin (vitamin B-12) 1,000 mcg PO DAILY 07/27/24 07/27/24 History
1,000 mcg tablet
meloxicam 15 mg tablet 15 mg PO DAILY 07/27/24 07/27/24 History
vitamin E 268 mg (400 unit) capsule 268 mg PO DAILY 07/27/24 07/27/24 History
Review of Systems
-
History Source: Patient
All other systems: Negative unless noted
Constitutional: Reports No Symptoms
EENT: Reports No Symptoms
Respiratory: Reports No Symptoms
Cardiac: Reports No Symptoms
Vascular: Denies Leg Pain / Claudication
Abdomen/GI: Reports No Symptoms
: Reports No Symptoms
Musculoskeletal: Reports No Symptoms
Skin: Reports No Symptoms
Neurological: Reports Other (Left eye visual loss)
Endocrine: Reports No Symptoms
Physical Exam
Vital Signs
Temp Pulse Resp BP Pulse Ox
97.9 F 70 17 164/90 97
07/27/24 13:53 07/27/24 13:53 07/27/24 13:53 07/27/24 13:53 07/27/24 13:53
Lab Results
07/27/24 10:20
07/27/24 10:20
Troponin I < 0.012 ng/ml 07/27/24 10:20
Physical Exam
General: No Apparent Distress
HEENT: Normocephalic and Atraumatic
Respiratory: Non Labored Respirations
Cardiac: Negative JVD
GI: Soft and Non Tender
Musculoskeletal: No Clubbing and No Cyanosis
Skin: Warm
Neuro: Awake, Alert, Oriented, No Motor Deficits and Other (Left eye visual loss)
Psych: Calm
Assessment / Plan
-
Plan/ Left eye amaurosis type symptoms. Cannot definitively say this amaurosis and not ophthalmologic in nature. His left carotid stenosis which would result in amaurosis does not seem to be over 50%. Therefore there may not be a role for
revascularization. Agree with antiplatelet therapy for now. Would favor carotid duplex to better image. Agree with MRI of the brain (if this was an occipital stroke or something that could result in left eye vision loss in which case treating the
right carotid would be of benefit). Will follow-up MRI and carotid duplex results. Pending that could consider revascularization if needed.
Data Reviewed
-
Labs: Labs Reviewed by me
[2024-07-27] MEDS: NORVASC 10 MG PO (17:48)
[2024-07-27] MEDS: LOVENOX 40 MG SC (17:49)
[2024-07-27] MEDS: LIPITOR 40 MG PO (17:49)
--- NOTE | 2024-07-27 22:55 | TRANSFER ---
received patient from 1 acute at 2200. pt walked from wheelchair to bed with standby assist. pt AAOx3, VSS. NIHSS done at bedside with RN. call garcia within reach, will continue to monitor.
[2024-07-28 03:29] VITALS: BP 122/82
[2024-07-28] MEDS: SYNTHROID 75 MCG PO (05:23)
[2024-07-28 07:45] VITALS: BP 124/84
--- NOTE | 2024-07-28 07:46 | W.PN.NEURO.1 ---
Today's Communication / Plan
-
provided loading doses of antiplatelet agents, aspirin and clopidogrel, now should be followed by routine dosing of both for 21 days, followed by aspirin alone, lifelong
provide atorvastatin 80 mg as replacement of simvastatin dosing in hopes of better control over cholesterol in future
Patient requires ophthalmology consultation today
Check orthostatics
Neuro Assessment/Plan
Assessment
Abrupt onset of visual loss in the left eye; most likely due to branch retinal artery occlusion
MRI of brain failed to show acute ischemic stroke
MRA head and neck failed to confirm significant carotid stenoses
Carotid U/S showed < 70% stenosis in either artery
Plan
provided loading doses of antiplatelet agents, aspirin and clopidogrel, now should be followed by routine dosing of both for 21 days, followed by aspirin alone, lifelong
provide atorvastatin 80 mg as replacement of simvastatin dosing in hopes of better control over cholesterol in future
Patient requires ophthalmology consultation today
Check orthostatics
Rehabilitation evaluation
Goal of normotension 24 hours after onset of symptoms
Will follow peripherally
Subjective/Objective
Subjective Data
Date of Service: July 28, 2024
Improved, not resolved
Objective Data
Vital Signs
Temp Pulse Resp BP Pulse Ox
36.6 C 70 18 124/84 97
07/28/24 07:45 07/28/24 07:45 07/28/24 07:45 07/28/24 07:45 07/28/24 07:45
PT 13.0 Sec (11.4-14.6) 07/27/24 10:20
INR 0.93 07/27/24 10:20
APTT 30.3 Sec (23.4-35.0) 07/27/24 10:20
Sodium 137 mmol/L (135-145) 07/27/24 10:20
Potassium mmol/L (3.5-5.1) 07/27/24 10:20
BUN 18 mg/dl (9-20) 07/27/24 10:20
Glucose 104 mg/dl (70-99) H 07/27/24 10:20
Calcium 9.3 mg/dl (8.4-10.2) 07/27/24 10:20
LDL Cholesterol, Calc 97 mg/dl 07/27/24 11:15
Vitamin B12 948 pg/ml (239-931) H 07/27/24 11:15
Patient Allergies
ketorolac [From Toradol] Allergy (Verified 07/27/24 09:49)
Nausea / Vomiting
Review of Systems
-
History Source: Patient
All other systems: Reviewed and negative
Respiratory: Negative Trouble Breathing
Cardiac: Negative Chest Pain
Physical Exam
-
General: No Apparent Distress and Appears Stated Age
Eyes: Round OU, [place] Conjunctivae and No Ptosis
HEENT: Anicteric, Moist Mucous Membranes and Other (Prior uvulectomy)
Neck: Full Range of Motion
Respiratory: No Dyspnea
Cardiac: No JVD
GI: Non-distended
Skin: Unremarkable
Extremities: No Clubbing, No Cyanosis and No Edema
Psych: Intact Judgement/Insight
Extended Neurological Exam
Mood & Affect: Mood Unremarkable and Affect Unremarkable
Attention Span & Concentration: Awake, Alert, Interactive and No Difficulty with 2 Step Request
Memory: Unremarkable
Tremor: Hand Tremor Absent and Head Tremor Absent
Speech: Quality Unremarkable and Quantity Unremarkable
Cranial Nerve II: Left Eye: Pupillary Reactivity Unremarkable, Pupillary Size Unremarkable and Visual Head Grossly Intact
Cranial Nerve II: Right Eye: Pupillary Reactivity Unremarkable, Pupillary Size Unremarkable and Visual Head Grossly Intact
Cranial Nerves III, IV, : Extraocular Movement: Extraocular Movement Full in all Directions
Cranial Nerve VII: Facial Symmetry: Normal Facial Symmetry
Cranial Nerve VIII: Hearing: Unremarkable Hearing to Normal Conversational Volume
Cranial Nerve XI: Shoulder Shrug: Unremarkable
Muscle Strength, Overall: Full in Upper Extremities
Muscle Bulk & Tone: Bulk Unremarkable and Tone Unremarkable
Touch Sensation: Unremarkable
Coordination: Reaches for Objects without Difficulty
Past History
Past History
ED Past Medical History: HTN and Hypercholesterolemia
ED Past Surgical History: Orthopedic (L wrist fx repair, left ACL repair, left thumb repair , right tib-fib fx 2002) and Other (nasal surgery for snoring)
Social History
Tobacco: Non-smoker
Alcohol: Occasional
Drug: None
Personal:
Living: with family
Family History
Family History: Other (reviewed and non-contributory)
Medications
-
Medications:
Generic Name Dose Route Start Last Admin
Trade Name Freq PRN Reason Stop Dose Admin
Acetaminophen 650 mg 07/27/24 13:01
Acetaminophen 325 Mg Tablet PO 08/24/24 13:00
Q4HPRN PRN
AVILA, mild pain, or temp >100.4F
Amlodipine Besylate 10 mg 07/27/24 15:20 07/27/24 17:48
Amlodipine 10 Mg Tablet PO 08/24/24 15:19 10 mg
DAILY JOSE MANUEL Administration
Ascorbic Acid 500 mg 07/28/24 08:00
Ascorbic Acid 500 Mg Tablet PO 08/25/24 07:59
DAILY JOSE MANUEL
Aspirin 81 mg 07/28/24 08:00
Aspirin 81 Mg (Enteric Coated) Tablet PO 08/25/24 07:59
DAILY JOSE MANUEL
Atorvastatin Calcium 40 mg 07/27/24 18:00 07/27/24 17:49
Atorvastatin (Lipitor) 40 Mg Tablet PO 08/24/24 17:59 40 mg
QPM JOSE MANUEL Administration
Cholecalciferol 25 mcg 07/28/24 08:00
Cholecalciferol (Vitamin D3) 25 Mcg Tablet (1,000 Units) PO 08/25/24 07:59
DAILY JOSE MANUEL
Clopidogrel Bisulfate 75 mg 07/28/24 08:00
Clopidogrel 75 Mg Tablet PO 08/17/24 08:01
DAILY JOSE MANUEL
Cyanocobalamin 1,000 mcg 07/28/24 08:00
Cyanocobalamin 1,000 Mcg Tablet PO 08/25/24 07:59
DAILY JOSE MANUEL
Enoxaparin Sodium 40 mg 07/27/24 18:00 07/27/24 17:49
Enoxaparin Sodium 40 Mg/0.4 Ml Syringe SC 08/24/24 17:59 40 mg
QPM JOSE MANUEL Administration
Levothyroxine Sodium 75 mcg 07/28/24 06:00 07/28/24 05:23
Levothyroxine 75 Mcg Tablet PO 08/25/24 05:59 75 mcg
DAILY@0600 JOSE MANUEL Administration
Pantoprazole Sodium 40 mg 07/28/24 08:00
Pantoprazole 40 Mg Delayed Release Tablet PO 08/25/24 07:59
DAILY JOSE MANUEL
Sodium Chloride 0 flush 07/27/24 14:00
Sodium Chloride 0.9% (Flush) Syringe IV 08/24/24 13:59
PER PROTOCOL JOSE MANUEL
Vitamin E 400 units 07/28/24 08:00
Vitamin E 400 International Units Capsule (180 Mg) PO 08/25/24 07:59
DAILY JOSE MANUEL
[2024-07-28 08:33] LABS: Hematocrit 41.6 % (39.0-52.0); Hemoglobin 14.5 g/dL (13.0-18.0); Mean Corp Hgb Conc. 34.9 g/dL (33.0-37.0); Mean Corpuscular Hgb 31.3 pg (27.0-31.0); Mean Corpuscular Volume 89.8 fL (80.0-94.0); Mean Platelet Volume 9.2 fL (7.4-10.4); Platelet Count 213 10^3/uL (130-400); Red Blood Cell Count 4.63 10^6/uL (4.70-6.10); Red Cell Dist. Width 13.6 % (11.5-14.5); White Blood Cell Count 5.9 10^3/uL (4.8-10.8)
[2024-07-28 09:00] LABS: ALT (SGPT) 23 U/L (0-50); AST (SGOT) 24 U/L (17-59); Albumin 4.2 g/dl (3.5-5.0); Alkaline Phosphatase 69 U/L (38-126); Blood Urea Nitrogen 16 mg/dl (9-20); Calcium 9.3 mg/dl (8.4-10.2); Carbon Dioxide 20 mmol/L (22-30); Chloride 108 mmol/L (98-107); Estimated Creatinine Clearance 74 ml/min; Glucose 99 mg/dl (70-99); Potassium 4.4 mmol/L (3.5-5.1); Sodium 139 mmol/L (135-145); Total Bilirubin 0.9 mg/dl (0.2-1.3); Total Protein 6.6 g/dl (6.3-8.2); eGFR > 60.00
[2024-07-28] MEDS: NORVASC 10 MG PO (09:10)
[2024-07-28] MEDS: VITAMIN E 400 UNITS PO (09:10)
[2024-07-28] MEDS: PROTONIX 40 MG PO (09:10)
[2024-07-28] MEDS: VITAMIN B-12 1000 MCG PO (09:10)
[2024-07-28] MEDS: VITAMIN D3 (cholecalciferol) 25 MCG PO (09:10)
[2024-07-28] MEDS: VITAMIN C 500 MG PO (09:10)
[2024-07-28] MEDS: PLAVIX 75 MG PO (09:11)
[2024-07-28] MEDS: ASPIR LOW (ENTERIC COATED) 81 MG PO (09:11)
--- NOTE | 2024-07-28 09:11 | W.PN.UPDATE ---
Update Note
Progress Note Update
I saw and evaluated the patient. I reviewed the resident�s note and agree with findings and plan as documented in the resident�s note.
No new complaints.
Gen: NAD, AAOx3.
Eyes: EOMI, PERRLA, no scleral icterus. L eye with partially intact vision in the L temporal ands uperior hemifields. All other visual is[place] in the left eye with visual deficit.
Neck: supple.
CV: remains RRR, +S1/S2, no m/r/g.
Resp: remains CTAB, no rales, wheezes, or rhonchi.
Abd: +BS, soft, NT, ND
Skin: No rashes.
Neuro: CN 2-12 intact, non-focal.
Psych: Normal mood and affect.
CT brain: No acute intracranial abnormality.
CTA head/neck: No findings to suggest internal carotid artery or vertebral artery dissection bilaterally. Moderate to marked atherosclerosis of the carotid bifurcations and proximal internal carotid arteries bilaterally with borderline
hemodynamically significant stenosis of the proximal right internal carotid artery at approximately 70% stenosis and nonhemodynamically significant stenosis of the proximal left internal carotid artery at approximately 50% stenosis. No findings to
suggest proximal anterior middle cerebral artery intracranial stenosis or vessel cut off bilaterally.
ECG (read by me): NSR @ 69, L-axis, normal intervals aside from QTc 462ms, RBB, no acute ST/TW changes
B/L carotid U/S:
1. By velocity criteria, there is 50-69% stenosis of the right internal carotid artery.
2. By velocity criteria, any left internal carotid artery stenosis present is in the range of 0-49%.
3. Antegrade flow bilateral vertebral arteries.
MRA head/neck: No vascular dissection or occlusion. Plaque is demonstrated in the carotid bulb and at the ICA origin, bilaterally. In addition, in the right, there is plaque in the proximal ICA. This results in tandem lesions on the right with
narrowing of 35-40% at the ICA origin and 50-55% in the proximal ICA. On the left, approximately 60% narrowing at the ICA origin. No cerebral artery hemodynamically significant stenosis, thrombus, or occlusion. No aneurysm.
MRI brain: No acute intracranial abnormality noted. Specifically, no evidence to suggest acute infarct.
Stroke-like symptoms:
-likely due branch retinal artery occlusion
-on admission pt was out of the window for TNK as per Dr. Martin
-L eye vision has somewhat improved
-MRI brain without acute CVA
-tele
-statin increased to 80mg
-ASA/Plavix started, plavix will be for 21 days
-neuro saw in c/s. As per discussion with Dr. Martin over [employer] at 0901 on 07/28/24 the pt is medically cleared for d/c.
-with 70% left-sided R-ICA stenosis on CTA head/neck vascular saw the pt in consultation. Carotid U/S and MRA head/neck above and without stenoses > 69%.
-No NSAIDs (will not continue pt's home Mobic)
Other problems:
Essential HTN: cont Norvasc
Hypothyroidism: Continue Levoxyl
Pt's updated over speaker phone.
Total time spent on d/c = 34 min. This included today's physical exam, progress note, review of laboratory and diagnostic data, preparation of discharge documents and prescriptions, and discussions about the pt's hospital course and discharge plan
with the patient and other electromedical equipment technician involved in the patient's care.
FULL/Lovenox
--- NOTE | 2024-07-28 09:12 | PTOTSP ---
Speech Therapy Evaluation:
Pt presents with functional oropharyngeal swallow at bedside. No overt s/sx of aspiration across PO trials. Pt passed 3oz swallow screen. WBC WNL. No chest imaging completed thus far. No significant predisposing risk factors of dysphagia. Acute risk
factors for development of dysphagia include narrowing in R proximal ICA (50-55%) and narrowing at the L ICA origin (60%) with consideration of revascularization.
Recommend:
1. Continue IDDSI Level 7 (regular) solids and thin liquids
2. Medications as tolerated
3. General aspiration precautions
4. NUCLEAR OPERATOR to follow pending hospitalizaiton to monitor tolerance of current diet - likely brief
--- NOTE | 2024-07-28 10:23 | W.PN.HOSP.TC ---
Today's Communication/Plan
-
Patient to be discharged home today with instructions to follow-up with ophthalmology, changes in medication include increased statin to 80 mg atorvastatin
Assessment / Plan
Assessment / Plan
Assessment:
69-year-old male with a past medical history of hypertension and hyperlipidemia comes to the [facility] ED due to recent left eye vision loss that started around 4 AM this morning. Patient underwent imaging with both CT head and CTA head
which did not show any acute strokes. Neurology was consulted. Patient was admitted to the hospital for suspected stroke and will undergo further imaging with MR. Patient was started on aspirin and clopidogrel. He was not a candidate for TNK as
he was outside the window. Patient admitted to telemetry. Patient continues to feel well and his vision has been improving since he has been in the hospital.
CT brain: No acute intracranial abnormality.
CTA head/neck: No findings to suggest internal carotid artery or vertebral artery dissection bilaterally. Moderate to marked atherosclerosis of the carotid bifurcations and proximal internal carotid arteries bilaterally with borderline
hemodynamically significant stenosis of the proximal right internal carotid artery at approximately 70% stenosis and nonhemodynamically significant stenosis of the proximal left internal carotid artery at approximately 50% stenosis. No findings to
suggest proximal anterior middle cerebral artery intracranial stenosis or vessel cut off bilaterally.
B/L carotid U/S:
1. By velocity criteria, there is 50-69% stenosis of the right internal carotid artery.
2. By velocity criteria, any left internal carotid artery stenosis present is in the range of 0-49%.
3. Antegrade flow bilateral vertebral arteries.
MRA head/neck: No vascular dissection or occlusion. Plaque is demonstrated in the carotid bulb and at the ICA origin, bilaterally. In addition, in the right, there is plaque in the proximal ICA. This results in tandem lesions on the right with
narrowing of 35-40% at the ICA origin and 50-55% in the proximal ICA. On the left, approximately 60% narrowing at the ICA origin. No cerebral artery hemodynamically significant stenosis, thrombus, or occlusion. No aneurysm.
MRI brain: No acute intracranial abnormality noted. Specifically, no evidence to suggest acute infarct.
Plan:
# Acute left eye vision loss secondary to probable stroke
-Patient still reports persistent symptoms, however they are much improved from yesterday
-Admitted to the CVA pathway
-Admitted to telemetry
-Neurology consulted, input appreciated
-MRI did not show any acute CVA
-Patient was out of the window for TNK
-Was started on aspirin and Plavix
-Patient was also found to have 70% left-sided R�ICA stenosis as per CTA of head and neck
-Vascular surgery consulted
-Patient should follow-up with vascular surgery in the future as per their recommendations
-NSAIDs contraindicated for now, will hold patient's home Mobic
-Follow stroke protocols, neurological checks as needed
-As per neuro discussions today, patient cleared for discharge home, atorvastatin will be increased to 80 mg
-Patient to continue ASA/Plavix for 21 days
-Vision loss most likely due to retinal artery branch occlusion
-Patient needs to follow-up with ophthalmology
# Hypertension
-Continue amlodipine 10 mg daily
# Hyperlipidemia
-DC home simvastatin as patient will be on atorvastatin 80 mg
# Hypothyroidism
-Continue levothyroxine
Full code-patient wanted to be full code until he spoke with his , will discuss further
DVT prophylaxis-Lovenox
Anticipated Discharge: Today
Subjective/Interval History
-
Date of Service: July 28, 2024
Patient states that he has been feeling better and that his vision in his left eye is improving. The blurriness still exists however the area of blackness that he was having on the right visual field of his left eye is now improving. He has no
other symptoms or acute concerns.
Objective Data
-
Labs:
Laboratory Results
07/28/24
07:19
WBC 5.9
Hgb 14.5
Hct 41.6
Plt Count 213
Sodium 139
Potassium 4.4
Chloride 108 H
Carbon Dioxide 20 L
BUN 16
Creatinine 0.9
Glucose 99
Calcium 9.3
Total Bilirubin 0.9
AST 24
ALT 23
Alkaline Phosphatase 69
Vital Signs:
Vital Signs
Temp Pulse Resp BP Pulse Ox
97.9 F 70 18 124/84 97
07/28/24 07:45 07/28/24 09:10 07/28/24 07:45 07/28/24 09:10 07/28/24 07:45
I&O
07/27/24 07/28/24 07/29/24
06:59 06:59 06:59
Intake Total 960 / 960
Balance 960 / 960
Review of Systems
-
History Source: Patient
Constitutional: Denies Fever, Fatigue or Weakness
EENT: Reports Blurry Vision; Denies Eye Pain
Respiratory: Denies Cough or Trouble Breathing
Cardiac: Denies Chest Pain, Diaphoresis or Palpitations
Abdomen/GI: Denies Abdominal Pain, Nausea or Vomiting
Genitourinary: Reports No Symptoms
Musculoskeletal: Reports No Symptoms
Skin: Reports No Symptoms
Neuro: Denies Headache, Weakness, Numbness or Lightheadedness
Endocrine: Reports No Symptoms
Physical Exam
-
General: Well Developed, Well Nourished, No Apparent Distress and Comfortable
HEENT: Normocephalic, Atraumatic and Other (Blurriness in the left visual field left eye, diminished vision in the right visual field of the left eye)
Respiratory: Clear to Auscultation and Non Labored Respirations
Cardiac: Regular Rhythm and S1/S2
GI: Soft, Nontender and Nondistended
Musculoskeletal: No Clubbing, No Cyanosis and No Edema
Skin: Warm
Neuro: Awake, Alert, Oriented, AO x 3, No Motor Deficits and No Sensory Deficits; Negative Slurred Speech
Psych: Calm
Data Reviewed
-
MRI: Report Reviewed by me, Discussed with Physician, Discussed with Nurse and Discussed with Patient
Labs: Labs Reviewed by me, Discussed with Physician, Discussed with Nurse and Discussed with Patient
[2024-07-28 11:02] VITALS: BP 143/87; PULSE 78
[2024-07-28 11:09] VITALS: BP 143/87; PULSE 78
--- NOTE | 2024-07-28 11:11 | PTOTSP ---
pt currently requires no assistance to complete simple ADLs, functional transfers, ambulation. pt able to compensate for right visual field loss of left eye. pt aware of recommendation of no driving at this time. no acute OT needs identified at this
time, recommend home with no needs.
--- NOTE | 2024-07-28 11:15 | PTOTSP ---
Pt is independent with all mobility without need for any assistive device. Pt knows to not drive. Pt was given a name of another local sheriff Dr. Dedra Grider) for outpatient f/u. No skilled PT needs. Will sign off.
[2024-07-28 11:30] VITALS: BP 144/82
--- NOTE | 2024-07-28 11:31 | W.PN.VS ---
Addendum entered and electronically signed by Stevenson Guzman MD 07/28/24 11:50:
Seen and examined with FAMILIA Shea. Agree with findings as noted below. Reviewed all imaging studies. Discussed with patient that based on CTA and ultrasound findings of 50% or less stenosis on the left carotid system, even if amaurosis event was
from this carotid, recommend continued conservative management with medical therapy (dual antiplatelet therapy). No clear indication or definitive benefit (versus risk) for carotid revascularization at this time. Can follow-up in the office.
Original Note:
Today's Communication / Plan
-
Patient seen and examined at bedside with Dr. Stevenson Guzman, below plan reviewed with attending
Assessment/Plan
-
Assessment: 69-year-old male admitted for left eye vision changes with evidence of bilateral carotid stenosis
Plan:
Low suspicion that vision loss is from left carotid disease, MRI negative for stroke, will have patient follow-up in outpatient setting for continued surveillance of carotid disease
Subjective Data
-
Date of Service: July 28, 2024
Patient seen evaluated bedside, reports slow return of left eye vision but some vision loss continues.
Objective Data
-
Vital Signs
Temp Pulse Resp BP Pulse Ox
98.8 F 81 18 144/82 100
07/28/24 11:30 07/28/24 11:30 07/28/24 11:30 07/28/24 11:30 07/28/24 11:30
Intake and Output
07/27/24 07/28/24 07/29/24
06:59 06:59 06:59
Intake Total 960 / 960
Balance 960 / 960
Intake:
Oral fluids 960 / 960
Other:
Number of approximated MODERATE 3
amounts of urine
Lab Results
07/28/24 07:19
07/28/24 07:19
Calcium 9.3 mg/dl (8.4-10.2) 03/20/25 07:19
Total Bilirubin 0.9 mg/dl (0.2-1.3) 07/28/24 07:19
AST 24 U/L (17-59) 07/28/24 07:19
ALT 23 U/L (0-50) 07/28/24 07:19
Alkaline Phosphatase 69 U/L (38-126) 07/28/24 07:19
Total Protein 6.6 g/dl (6.3-8.2) 07/28/24 07:19
Albumin 4.2 g/dl (3.5-5.0) 07/28/24 07:19
Physical Exam
-
No apparent distress, resting in chair comfortably
No tachycardia
No dyspnea on room air
Bilateral lower extremity and lower extremity with equal strength
[2024-07-28 11:48] VITALS: BP 131/88; BP 146/92; BP 164/94; PULSE 78; PULSE 79; PULSE 84
--- NOTE | 2024-07-28 13:54 | W.DCSUMMARY ---
Discharge Summary
Discharge Data
Date of Admission: 07/27/24
Date of Discharge: 07/28/24
-
Pending Results: No
Hospital Course
Discharging Physician : Dr. Katie Gutierrez, Dr. Jethro De León
Disposition : Home
Primary care physician : Dr. Jeb Chung
Principal Discharge diagnosis : Abrupt onset of visual loss in the left eye likely secondary to retinal artery branch occlusion
Chronic Discharge diagnosis :
Essential hypertension
Hypothyroidism
Hospital Course :
69-year-old male with a past medical history of hypertension and hyperlipidemia comes to the [facility] ED on 07/27/2024 due to recent left eye vision loss that started around 4 AM that morning. He described the vision loss to only be limited
to the left eye with blurriness in the left visual field and lack of vision in the right visual field of the left eye. In the ED, Patient underwent imaging with both CT head and CTA head which did not show any acute strokes. CTA of the head and neck
did show 70% stenosis of the proximal right internal carotid artery for which Vascular Surgery was consulted. Neurology was consulted and the patient was admitted to the hospital for suspected stroke and underwent further imaging with MR. Patient
was started on aspirin and clopidogrel as well as atorvastatin. He was not a candidate for TNK as he was outside the window. Patient was admitted to telemetry and did not develop any other symptoms. Patient was seen by vascular who said patient
should be on conservative measures for now and no surgery planned at this time for his carotid stenosis. Patient continued to feel well and his vision improved while he was in the hospital. Ophthalmology was contacted and patient will have an
appointment with Dr. Mclean at 3:00pm today for further evaluation of his vision. Patient told to continue with increased dose of Atorvastatin at 80mg and Clopidogrel and Aspirin. Patient will also follow up with vascular surgery in the outpatient
setting regarding management of his carotid stenosis. Patient was discharged from the hospital as he was medically stable and will be going to his appointment with Dr. Mclean later today.
Important imaging findings :
CT brain: No acute intracranial abnormality.
CTA head/neck: No findings to suggest internal carotid artery or vertebral artery dissection bilaterally. Moderate to marked atherosclerosis of the carotid bifurcations and proximal internal carotid arteries bilaterally with borderline
hemodynamically significant stenosis of the proximal right internal carotid artery at approximately 70% stenosis and nonhemodynamically significant stenosis of the proximal left internal carotid artery at approximately 50% stenosis. No findings to
suggest proximal anterior middle cerebral artery intracranial stenosis or vessel cut off bilaterally.
B/L carotid U/S:
1. By velocity criteria, there is 50-69% stenosis of the right internal carotid artery.
2. By velocity criteria, any left internal carotid artery stenosis present is in the range of 0-49%.
3. Antegrade flow bilateral vertebral arteries.
MRA head/neck: No vascular dissection or occlusion. Plaque is demonstrated in the carotid bulb and at the ICA origin, bilaterally. In addition, in the right, there is plaque in the proximal ICA. This results in tandem lesions on the right with
narrowing of 35-40% at the ICA origin and 50-55% in the proximal ICA. On the left, approximately 60% narrowing at the ICA origin. No cerebral artery hemodynamically significant stenosis, thrombus, or occlusion. No aneurysm.
MRI brain: No acute intracranial abnormality noted. Specifically, no evidence to suggest acute infarct.
Discharge Plan
-
Patient Disposition: Home (Routine Discharge)
Discharge Diagnosis/Procedures: Abrupt onset of visual loss in the left eye likely secondary to retinal artery branch occlusion
Essential hypertension
Hypothyroidism
Diet: Low Cholesterol
Activity: With assistance
Driving Restrictions: Not until seen by your Dr
Bathing Restrictions: None
Specialty Instructions: Weigh Daily- Call MD for wt gain/loss 3 lbs overnight/5 lbs in 1 week
Referrals:
Hans Mclean MD [Active] - Immediately (Appointment is at 3pm today)
Jeb Chung MD [Family Provider] - in less than 1 week
Stevenson Guzman MD [Active] - 09/09/24 4:15 pm
Additional Discharge Medication Instructions: Follow up with PCP within one week
Simvastatin Changed to Atorvastatin 80mg Once daily
Continue Aspirin 81mg indefinitely and Clopidogrel 75mg once daily for 21 days
Prescriptions:
New
aspirin 81 mg Tablet,Delayed Release (Dr/Ec)
81 mg PO DAILY 30 Days Qty: 30 0RF
atorvastatin 80 mg Tablet
80 mg PO QPM 30 Days Qty: 30 0RF
clopidogrel 75 mg Tablet
75 mg PO DAILY 21 Days Qty: 21 0RF
Continued
pantoprazole 40 mg tablet,delayed release (DR/EC)
40 mg PO DAILY
levothyroxine [Synthroid] 75 mcg Tablet
75 mcg PO DAILY
amlodipine 10 mg Tablet
10 mg PO DAILY Qty: 30 1RF
cyanocobalamin (vitamin B-12) 1,000 mcg Tablet
1,000 mcg PO DAILY
ascorbic acid (vitamin C) [Vitamin C] 500 mg Tablet
500 mg PO DAILY
vitamin E 268 mg (400 unit) Capsule
268 mg PO DAILY
cholecalciferol (vitamin D3) [Vitamin D3] 25 mcg (1,000 unit) Tablet
25 mcg PO DAILY
Discontinued
simvastatin 20 mg tablet
20 mg PO QPM
meloxicam [Mobic] 15 mg Tablet
15 mg PO DAILY
Discharge Orders:
Discharge Patient (As Directed); Ordered 07/28/24
Ordered By: Jethro De León
Discharge Date and Time
Discharge Date/Time: 07/28/24 13:17
Print Language: BERMUDIAN
[2024-07-28 19:04] LABS: ANA, IgG Reflex to HEp-2 None Detected (None Detected)
== END 2024-07-28 13:17 | disposition home or self-care (01) | DRG 125 ==
LOC: 4 EAST ACU 12:35
PROVIDERS: ADMITTING PHYSICIAN Internal Medicine; CONSULT PHYSICIAN Psychiatry & Neurology Neurology; CONSULT PHYSICIAN Surgery Vascular Surgery; EMERGENCY PHYSICIAN Emergency Medicine; FAMILY PHYSICIAN Internal Medicine
DX: H34.232 Retinal artery branch occlusion, left eye (principal); I65.21 Occlusion and stenosis of right carotid artery; I10 Essential (primary) hypertension; E03.9 Hypothyroidism, unspecified; H54.62 Unqualified visual loss, left eye, normal vision right eye; E78.00 Pure hypercholesterolemia, unspecified; Z79.899 Other long term (current) drug therapy; Z82.49 Family history of ischemic heart disease and other diseases of the circulatory system; Z83.3 Family history of diabetes mellitus
CPT/HCPCS: 70450; 70496; 70498; 70544; 70548; 70551; 80048; 80053; 80061; 82607; 82746; 82962; 84443; 84484; 85025; 85027; 85610; 85652; 85730; 86038; 92610; 93005; 93880; 97162; 97166; 99285; Q9967

== ENCOUNTER → 2024-08-25 12:48 | Outpatient (REF) | payer MEDICARE, OTHER, SELFPAY | LOC: HWRCS 12:48 | PROVIDERS: ATTENDING PHYSICIAN Internal Medicine Cardiovascular Disease; FAMILY PHYSICIAN Internal Medicine | DX: H34.232 Retinal artery branch occlusion, left eye (principal) | CPT/HCPCS: 93306 ==

== ENCOUNTER → 2024-12-02 11:30 | Outpatient (REF) | payer MEDICARE, OTHER, SELFPAY | LOC: RAD 11:30 | PROVIDERS: ATTENDING PHYSICIAN Physician Assistant; FAMILY PHYSICIAN Internal Medicine | DX: M25.511 Pain in right shoulder (principal); M67.813 Other specified disorders of tendon, right shoulder | CPT/HCPCS: 73030 ==

== ENCOUNTER 2025-01-09 05:02 | Observation (INO) | payer MEDICARE, OTHER, SELFPAY ==
[2025-01-08 22:57] VITALS: BP 154/87
--- NOTE | 2025-01-08 23:41 | ED.CVA ---
History of Present Illness
General
Chief Complaint: CVA/TIA Symptoms
Source: patient and spouse
Time Seen by Provider: 01/08/25 23:22
Onset of Stroke Symptoms
Onset of symptoms known: Yes
Date of onset of symptoms: 01/08/25
Time of onset of symptoms: 22:15
History of Present Illness
History of Present Illness:
Poor think this patient is a 69-year-old male who says that he was in bed awake and noted at around 10:15 PM that he saw a 'bright white flash' happen approximately 6 times and then fully resolved. He now is asymptomatic. He denies a sense of
amaurosis, double vision, blurry vision, chest pain, shortness of breath, neck pain, headache, dizziness, nausea, vomiting, numbness, tingling, focal weakness, or other complaints. Of note, in July of this year patient had a abrupt onset of visual
loss in the left eye likely secondary to a retinal artery branch occlusion, and he now has approximately 80% loss of vision from the left eye. When that happened, he initially noted blurry vision with lots of bright colors before he developed loss
of vision. He does not describe the symptoms tonight.
Past History
Past History
ED Past Medical History: HTN, Hypercholesterolemia and Other (Retinal artery occlusion)
ED Past Surgical History: Orthopedic (L wrist fx repair, left ACL repair, left thumb repair , right tib-fib fx 2002) and Other (nasal surgery for snoring)
Social History
Tobacco: Non-smoker
Alcohol: Occasional
Drug: None
Personal:
Living: with family
Family History
Family History: Other (reviewed and non-contributory)
Phy Exam
Physical Exam
Physical Exam:
GENERAL: Alert , in no apparent distress
EYE: pupils equal and reactive, no photophobia, funduscopic exam the right eye very limited but unremarkable
NECK: Supple, no significant adenopathy.
ENT: o/p clr, mmm.
CARDIAC: Regular rate and rhythm .
LUNGS: Clear breath sounds bilaterally, no acute respiratory distress, no wheezes/rales/rhonchi
ABDOMEN: Soft, without focal tenderness, no r/g, no cvat
NEUROLOGICAL: Alert and oriented, no focal neuro deficits except baseline left visual deficit (he able to appreciate finger movement in the left lateral visual field only from the left eye), [id number] normal, motor 5 out of 5, sensory intact,
cranial nerves II through XII. Visual [place] intact from right eye.
SKIN: Warm and dry, skin intact.
MUSCULOSKELETAL: No edema, well perfused.
PSYCH: Normal and appropriate interaction.
NIH Stroke Score
Level of Consciousness: 0 - Alert
LOC questions: 0-Answers both correctly
LOC Commands: 0-Performs both correctly
Best Gaze: 0-Normal
Visual [place]: 1=Partial hemianopia
Facial palsy: 0=Normal, symmetrical
Motor - Right Arm: 0=No drift 10 seconds
Motor - Left Arm: 0=No drift 10 seconds
Motor - Right Le-No drift 5 seconds
Motor - Left Le-No drift 5 seconds
Limb Ataxia: 0-Absent
Sensation: 0-Normal
Best Language: 0-No aphasia
Dysarthria: 0-Normal
Extinction and Inattention: 0-No abnormality
Total Score:: 1
Course
Orders/Labs/Results
Orders:
Orders
01/08/25 23:30
Cardiac Monitoring- Treatment ONCE
01/08/25 23:31
Electrocardiogram (*1) Stat
Reason for Study: Other
Other Reason for Exam: neuro symptoms
EKG- Treatment ONCE
01/08/25 23:42
Complete Blood Count/No Diff Urgent
Comprehensive Metabolic Panel Urgent
01/09/25 00:01
CT Head & Neck Angio W/wo IV Urgent
Reason For Exam: R visual comlnts
01/09/25 04:26
Admit/Transfer Patient As Directed
Co-Sign Provider:
Level of Care: Observation services
Assign to:: Telemetry
Physician / Group: Edwige
Diagnosis: TIA/left eye vision changes
Reason for Telemetry: CVA/TIA
Date to Stop Telemetry: 01/12/25
Time to Stop Telemetry: 11:00
PRN Pain Medication Management As Directed
May give lesser potent ordered pain med per pt: Yes
preference::
Protocol:: Medication orders for pain may be administered in a
manner that supports deferring to patient preference
when the pt is:
- Requesting an ordered lesser potent pain medication.
Least to most potent pain medications are defined
as: acetaminophen < NSAID < tramadol < opioids
(morphine, oxycodone, hydromorphone).
- Requesting a lesser dose of the same medication IF
ORDERED.
- Requesting a less intrusive route of administration
if both routes are prescribed by the provider (PO <
IV).
01/09/25 04:27
Code Status As Directed
Resuscitation Status: Full Code
01/09/25 05:30
Acetaminophen [Tylenol] 650 mg PO Q4HPRN PRN
Bisacodyl [Dulcolax] 10 mg RECTAL [id number] PRN
Docusate W/Senna [Senokot-S] 1 tablet PO BIDPRN PRN
Polyethylene Glycol Powder [Miralax] 17 grams PO DAILYPRN PRN
01/09/25 05:30
Vascular Surgery Consult Routine
Consulting Provider: Jethro Floyd
Was physician already notified: Yes
Reason for consult: transient R eye vision loss, moderate-severe right carotid stenosis on CTA
Activity As Directed
Activity Level: With Assistance
Neurological Checks As Directed
Frequency: Per unit guidelines
Pneumatic Compression Sleeves As Directed
Type: Knee high
Vital Signs As Directed
Frequency: Per unit guidelines
DX Deep Vein Thrombosis Video Routine
01/09/25 Breakfast
Cholesterol Lowering
At Your Request: Full Participation
Does patient need a safe tray?: No
Cholesterol Lowering: Sodium, 2 Gram
Levothyroxine [Synthroid] 75 mcg PO DAILY @ 0600
01/09/25 07:45
Lipid Profile [Cardiovascular Evaluation] IN AM
Ver[employer]Now Aspirin IN AM
Pt on daily regimen OR been given initial dose of aspirin?: Yes
01/09/25 08:00
Amlodipine [Norvasc] 10 mg PO DAILY
Ascorbic Acid [Vitamin C] 500 mg PO DAILY
Aspirin Low Dose EC [Aspir Low (Enteric Coated)] 81 mg PO DAILY
Cholecalciferol (Vitamin D3) [VITAMIN D3 (cholecalciferol)] 25 mcg PO DAILY
Clopidogrel Bisulfate [Plavix] 75 mg PO DAILY
Cyanocobalamin [Vitamin B-12] 1,000 mcg PO DAILY
Pantoprazole [Protonix] 40 mg PO DAILY
01/09/25 18:00
Atorvastatin [Lipitor] 80 mg PO QPM
01/12/25 11:00
DC Protocol for Telemetry ONCE
Abnormal Lab Results
01/08/25
23:42
RBC 4.24 L 10^6/uL
(4.70-6.10)
Hct 37.9 L %
(39.0-52.0)
MCH 31.4 H pg
(27.0-31.0)
Carbon Dioxide 31 H mmol/L
(22-30)
Glucose 114 H mg/dl
(70-99)
01/08/25 23:42
01/08/25 23:42
Vital Signs
Initial and Last Documented VS:
Initial Vital Signs
Temp Pulse Resp BP Pulse Ox
98.3 F 80 20 154/87 96
01/08/25 22:57 01/08/25 22:57 01/08/25 22:57 01/08/25 22:57 01/08/25 22:57
Last Documented Vital Signs
Temp Pulse Resp BP Pulse Ox
97.8 F 67 18 140/67 97
01/09/25 11:28 01/09/25 11:28 01/09/25 11:28 01/09/25 11:28 01/09/25 11:28
*Pulse Oximetry
SaO2: 96
Oxygen Mode of Delivery: Room air
Patient hypoxic: no
*Critical Care Note
Total Time (30-74mins, 75-104mins- exclusive of procedures): Not Applicable
Update Note
Update Note:
Patient presents to the Emergency Department with __visual changes
Number and Complexity of Problems Addressed at the Encounter
� Chronic conditions affecting care:
� Acute Exacerbation and/or Progression of Chronic Illness:
� Differential Diagnosis includes: But not limited to TIA, CVA, retinal artery occlusion, PVD, etc. etc.
Amount and/or Complexity of Data to be Reviewed and Analyzed
� I performed an independent evaluation of and my interpretation is:
EKG:
CT: [place] patent without aneurysm stenosis or occlusion. Bilateral vertebral arteries are widely patent. Moderate atherosclerotic calcification of the bilateral carotid artery bifurcations right greater than left
moderate severe focal narrowing of the origin of the right ICA moderate focal narrowing of the origin of the left ICA carotid arteries are otherwise widely patent. Head CT NAD
Xrays:
Laboratory Studies: Generally unremarkable
Other: Visual acuity 20 / 30 right
� Review of other/old records reveals: Visit from July 2024 reviewed by me, patient at that time noted to have 70% stenosis at the right ICA and a 50% stenosis of the left ICA, not recommended for surgery at that time, started
on dual antiplatelet therapy which patient is compliant with
� Clinical information was obtained by an independent historian:
� Prescriptions/Medications Considered but not given:
� Further testing considered but not performed:
Risk of Complications and/or Morbidity or Mortality of Patient Management
� Social determinants of health affecting care:
� Discussion with other providers (PCP, Hospitalists, Consultants, etc):
� Escalation of care including admission/observation vs risk of discharge considered: NIH is baseline for patient. Patient is not a thrombolytic/IAT candidate given no new neurosymptoms at this time, NIH stable.
Patient and understandably very concerned given patient's visual event tonight, reminiscent of when he did develop acute vision loss on L and his degree of carotid stenosis on the right side. He is obviously not a candidate for emergent
therapy. His symptoms may be related to arterial disease however consideration also for PVD, retinal detachment, etc. Will have patient in hospital under observation with potential for vascular and or Optho consult in a.m.
ED Attending Note
-
Portions of this chart may have been created with voice recognition software.� Occasional wrong word or��sound alike� substitutions may have occurred due to the inherent limitations of voice recognition software.
Discharge Plan
Departure
Patient Disposition: Admit
Date of Disposition: 01/09/25
Time of Disposition: 02:20
Admit to: Telemetry
Presentation/result/management discussed w/ accepting MD/DO: Hospitalist
Condition: Fair
Discharge Problem:
Change in vision
Interventions
Interventions:
*Risk Screen - Suicide Last Done: 01/08/25 22:57
*General Assessment Last Done: 01/08/25 22:57
*Neglect/Abuse Screening Last Done: 01/08/25 22:57
*ED- Fall Risk Assessment Last Done: 01/09/25 05:20
*ED COVID-19 Vaccine History Last Done: 01/08/25 22:57
*Nursing Disposition Last Done: 01/09/25 05:20
ED- Pulmonary Assessment Last Done: 01/08/25 23:51
ED- Neurological Assessment Last Done: 01/08/25 23:51
ED- Cardiac Assessment Last Done: 01/08/25 23:51
ED Swallowing Screen Last Done: 01/09/25 02:32
Discharge Date and Time
Discharge Date/Time: 01/09/25 05:20
[2025-01-08 23:54] LABS: Hematocrit 37.9 % (39.0-52.0); Hemoglobin 13.3 g/dL (13.0-18.0); Mean Corp Hgb Conc. 35.1 g/dL (33.0-37.0); Mean Corpuscular Volume 89.4 fL (80.0-94.0); Platelet Count 173 10^3/uL (130-400); Red Cell Dist. Width 13.5 % (11.5-14.5)
[2025-01-09] VITALS (8 sets, daily range): BP systolic 110–140; BP diastolic 66–79; BMI 27.6
[2025-01-09 00:20] LABS: ALT (SGPT) 31 U/L (0-50); AST (SGOT) 27 U/L (17-59); Albumin 4.1 g/dl (3.5-5.0); Alkaline Phosphatase 104 U/L (38-126); Blood Urea Nitrogen 10 mg/dl (9-20); Calcium 9.0 mg/dl (8.4-10.2); Carbon Dioxide 31 mmol/L (22-30); Chloride 107 mmol/L (98-107); Glucose 114 mg/dl (70-99); Potassium 4.2 mmol/L (3.5-5.1); Sodium 140 mmol/L (135-145); Total Protein 6.3 g/dl (6.3-8.2); eGFR > 60.00
--- NOTE | 2025-01-09 04:05 | HPS.HSE ---
Family Physician
-
Family Physician: NOT KNOW UNKNOWN - PT DOES
Chief Complaint
-
Right eye transient scotomas
History of Present Illness
This is a 69-year-old male with past medical history significant for hypothyroid, hypertension who is recent history of left eye vision loss thought to be secondary to a retinal artery branch occlusion currently on dual antiplatelet therapy and
statin presenting to the emergency department with acute episode of right eye flashing spots that lasted a few seconds and now resolved.
Patient reported that he had rainbow like vision in the left eye in July he did not go to the hospital and when he arose following morning he had complete visual loss with only a remanent left lateral vision sector. This time said come to the
Emergency Department before symptoms got worse. He denies any other neurological deficits including facial droop, aphasia, numbness tingling or weakness. He denies having any headache. He denies any palpitations.
Patient reports compliance with his Plavix and aspirin as well as statin. He states he is pending a follow-up with vascular surgeon in January. Patient was seen by vascular during his last admission and at that time did not require acute
intervention due to nonhemodynamically stenosis of the bilateral carotids.
In the emergency department today he has been afebrile, blood pressure is 124/78 with a pulse of 58 and was satting 98% on room air.
CBC is unremarkable, electrolytes BUN/creatinine were all in the normal range. ECG shows sinus rhythm at a rate of 65 with the right bundle branch unchanged from prior.
CT of the head shows no acute intracranial process,
CT angio of the [place] is patent without aneurysm stenosis or occlusion.
CTA of the neck shows moderate to severe focal narrowing of the origin of the right internal carotid artery, moderate focal narrowing of the origin of the left internal carotid artery. Carotid arteries otherwise widely patent with patent bilateral
vertebral arteries.
Medical History
Past Medical History
Past Medical History: Reports HTN and Hypercholesterolemia
Past Surgical History: Reports Orthopedic
Social History
Tobacco: Non-smoker
Alcohol: Occasional
Drug: None
Personal:
Living: With Family
Family History
Family History: CAD (Mother) and Diabetes (Mother)
Allergies / Home Medications
Allergies reflects when Allergies were last updated in [employer].
Home Medications with original date entered in [employer]
Allergy/Medication List:
Allergies
Allergy/AdvReac Type Severity Reaction Status Date / Time
ketorolac [From Toradol] Allergy Nausea / Verified 07/27/24 09:49
Vomiting
Home Medications
pantoprazole 40 mg tablet,delayed release 40 mg PO DAILY GERD 04/21/22
simvastatin 20 mg tablet 20 mg PO QPM High cholesterol 04/21/22
levothyroxine 75 mcg tablet (Synthroid) 75 mcg PO DAILY Thyroid 12/30/23
amlodipine 10 mg tablet 10 mg PO DAILY #30 tabs 01/05/24
ascorbic acid (vitamin C) 500 mg tablet (Vitamin C) 500 mg PO DAILY 07/27/24
cholecalciferol (vitamin D3) 25 mcg (1,000 unit) tablet (Vitamin D3) 25 mcg PO DAILY 07/27/24
cyanocobalamin (vitamin B-12) 1,000 mcg tablet 1,000 mcg PO DAILY 07/27/24
meloxicam 15 mg tablet 15 mg PO DAILY 07/27/24
vitamin E 268 mg (400 unit) capsule 268 mg PO DAILY 07/27/24
Review of Systems
-
History Source: Patient
A 12 point ROS was completed and negative except as noted: Yes
Constitutional: Denies Fever, Fatigue or Chills
EENT: Reports No Symptoms
Respiratory: Denies Cough or Trouble Breathing
Cardiac: Denies Chest Pain, Palpitations or Syncope
Abdomen/GI: Denies Abdominal Pain, Nausea or Vomiting
: Reports No Symptoms
Musculoskeletal: Reports No Symptoms
Skin: Reports No Symptoms
Neurological: Reports Other (Left eye vision loss)
Endocrine: Reports No Symptoms
Psych: Reports Calm
Physical Exam
Vital Signs
Vital Signs
Temp Pulse Resp BP Pulse Ox
98.3 F 58 16 124/78 93
01/08/25 22:57 01/09/25 03:00 01/09/25 03:00 01/09/25 03:00 01/09/25 03:00
Physical Exam
General: Well Developed, Well Nourished, No Apparent Distress and Conversant
HEENT: NormoCephalic and Anicteric
Respiratory: Clear and Non Labored Respirations
Cardiac: S1/S2 and Regular Rhythm
GI: Soft, Non Tender and Non Distended
Musculoskeletal: No Clubbing, No Cyanosis and No Edema
Skin: Warm
Neuro: AO x 3, No Motor Deficits, Cranial Nerves Intact, No Sensory Deficits and Other (Left eye: Left visual field with increased blurriness, right visual field dark); No Slurred Speech or Facial Droop
Psych: Calm
Laboratory Results
-
01/08/25 23:42
01/08/25 23:42
Laboratory Results
Total Bilirubin 0.5 mg/dl (0.2-1.3) 01/08/25 23:42
AST 27 U/L (17-59) 01/08/25 23:42
ALT 31 U/L (0-50) 01/08/25 23:42
Alkaline Phosphatase 104 U/L (38-126) 01/08/25 23:42
Data Reviewed
-
CT Scan: Report Reviewed by me
Medical Tests (Nuc Med, Echo, EKG etc): Image Personally Visualized and interpreted
Lab Data: Labs Reviewed by me
Old Records: Reviewed
Impression/Plan
-
IMPRESSION:
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
department with episode of flashing bright spots in the right eye that lasted several seconds before resolving and no other focal logical deficits. He denies any headache, orbital discomfort, and he denies any other focal logical deficits. NIHSS
equals 0 at this time.
PLAN:
TIA - Suspected TIA on the basis of transient vision changes in the left eye associated with CTA showing probable worsening left internal carotid artery stenosis. Unclear if more hemodynamically significant compared to prior.
- admit to telemetry observation
- continue DAPT and statin
- holding off on mri for now, check verifyASA.
- neuro check q 6
- vascular consultation
DVT PPX - SCD
Code status - Full Code
--- NOTE | 2025-01-09 06:11 | PTCARENOTE ---
Receive pt from ER. Pt alert oriented X3, calm and cooperative. Pt assisted to bed, steady gait. Pt denies any flush lights in the right eye, or any vision change. Pt reports partial visual loss on the left eye in 07/2024. Pt NIH=1 (please refer to
neurosheet for more details). Pt on NSR W/S. Bradyc on telemonitor. VSS (T=97.7, HR=59, RR=17, YG=739/79, SpO2=97% on RA). Pt is oriented to the room, call garcia within reach. Will continue to monitor the pt.
[2025-01-09] MEDS: SYNTHROID 75 MCG PO (06:18)
--- NOTE | 2025-01-09 07:47 | W.PN.HOSP.TC ---
Today's Communication/Plan
-
Pending ultrasound carotid
Assessment / Plan
Assessment / Plan
Impression:
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
department with episode of flashing bright spots in the right eye that lasted several seconds before resolving and no other focal logical deficits. He denies any headache, orbital discomfort, and he denies any other focal logical deficits. NIHSS
equals 0 at this time.
Assessment/plan:
TIA - Suspected TIA on the basis of transient vision changes in the left eye associated with CTA showing probable worsening left internal carotid artery stenosis. Unclear if more hemodynamically significant compared to prior.
Back to normal
- admited to telemetry observation
- continued on DAPT and statin
- vascular consultation. Ultrasound carotid pending
History�of�hypertension
Continue home meds
History of hyperlipidemia
Continue�statin
History of hypothyroidism
Continue�levothyroxine
CODE STATUS:�Full�code
DVT�prophylaxis:�Lovenox
Diet:�Regular�diet
Disposition: Pending ultrasound carotid
Total�time�spent�on�today�s�encounter�was�55�minutes�which�included�time�spent�in�counseling�the�patient/family�regarding�diagnosis�and�treatment�plan�as�listed�above,�goals�of�care,�and�symptom�management.�Case�was�discussed�with�nursing�staff,�spec
ialists,�and�care�coordinators/
Anticipated Discharge: Within 24 hours
Subjective/Interval History
-
Date of Service: January 09, 2025
Patient seen and examined at bedside, denies any chest pain or shortness of breath, no abdominal pain, no nausea, no vomiting, no diarrhea or constipation.
Right eye vision resolved back to baseline, Carotid Ultrasound pending.
Objective Data
-
Labs:
Laboratory Results
01/08/25
23:42
WBC 5.8
Hgb 13.3
Hct 37.9 L
Plt Count 173
Sodium 140
Potassium 4.2
Chloride 107
Carbon Dioxide 31 H
BUN 10
Creatinine 1.0
Glucose 114 H
Calcium 9.0
Total Bilirubin 0.5
AST 27
ALT 31
Alkaline Phosphatase 104
Vital Signs:
Vital Signs
Temp Pulse Resp BP Pulse Ox
97.7 F 59 17 118/79 97
01/09/25 05:36 01/09/25 05:36 01/09/25 05:36 01/09/25 05:36 01/09/25 06:08
Physical Exam
-
General: Well Developed, Well Nourished, No Apparent Distress and Comfortable
HEENT: Normocephalic, Atraumatic, Moist Mucous Membranes, No Ptosis, PERRLA and Nose Appears Normal
Respiratory: Clear to Auscultation and Non Labored Respirations
Cardiac: Regular Rhythm and S1/S2
Breast: Deferred by me
GI: Soft, Nontender, Nondistended and Normal Bowel Sounds
Genito-urinary: No Costovertebral Tender
Musculoskeletal: No Clubbing, No Cyanosis and No Edema
Skin: Warm
Neuro: Awake, Alert, Oriented, AO x 3 and No Motor Deficits
Psych: Calm
Data Reviewed
-
Diagnostic Radiology: Image personally visualized and interpreted and Report Reviewed by me
CT Scan: Image personally visualized and interpreted and Report Reviewed by me
Ultrasound: Image personally visualized and interpreted and Report Reviewed by me
MRI: Image personally visualized and interpreted and Report Reviewed by me
Medical Tests (Nuc Med, Echo etc): Image personally visualized and interpreted and Report Reviewed by me
Labs: Labs Reviewed by me
Old Records: Reviewed
[2025-01-09 08:49] LABS: HDL Cholesterol 47 mg/dl; LDL Cholesterol, Calculated 69 mg/dl; Very Low Density Lipoprotein 9 mg/dl (0-30)
--- NOTE | 2025-01-09 09:19 | W.PN.VS ---
Today's Communication / Plan
-
carotid duplex
Assessment/Plan
-
brief vision loss in right eye
cta - less than 50% stenosis of carotid arteries bilat
carotid not likely the cause
on dual antplt
recheck carotid duplex to see if velocities are elevated
not clear that surgical intervention will have benefit
Subjective Data
-
Date of Service: January 09, 2025
asked to eval patient for vision loss
history of vision loss in left eye
last night has very brief episode of flashing lights in right eye
immediately resolved
no other symptoms
no focal deficits
Objective Data
-
Vital Signs
Temp Pulse Resp BP Pulse Ox
97.3 F 56 18 135/77 97
01/09/25 07:30 01/09/25 07:30 01/09/25 07:30 01/09/25 07:30 01/09/25 07:30
Lab Results
01/08/25 23:42
01/08/25 23:42
Calcium 9.0 mg/dl (8.4-10.2) 01/08/25 23:42
Total Bilirubin 0.5 mg/dl (0.2-1.3) 01/08/25 23:42
AST 27 U/L (17-59) 01/08/25 23:42
ALT 31 U/L (0-50) 01/08/25 23:42
Alkaline Phosphatase 104 U/L (38-126) 01/08/25 23:42
Total Protein 6.3 g/dl (6.3-8.2) 01/08/25 23:42
Albumin 4.1 g/dl (3.5-5.0) 01/08/25 23:42
Physical Exam
-
rrr
ctab
stregth = bilat upper and lower legs
[2025-01-09] MEDS: ASPIR LOW (ENTERIC COATED) 81 MG PO (09:30)
[2025-01-09] MEDS: NORVASC 10 MG PO (09:31)
[2025-01-09] MEDS: VITAMIN B-12 1000 MCG PO (09:32)
[2025-01-09] MEDS: PROTONIX 40 MG PO (09:32)
[2025-01-09] MEDS: PLAVIX 75 MG PO (09:32)
[2025-01-09] MEDS: VITAMIN D3 (cholecalciferol) 25 MCG PO (09:32)
[2025-01-09] MEDS: VITAMIN C 500 MG PO (09:32)
[2025-01-09 12:23] LABS: VerifyNow Aspirin 414 ARU
--- NOTE | 2025-01-09 13:34 | W.DCSUMMARY ---
Discharge Summary
Discharge Data
Date of Admission: 01/09/25
Date of Discharge: 01/09/25
Total time spent discharging patient (in min): 40
-
Pending Results: No
Hospital Course
Hospital course
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
department with episode of flashing bright spots in the right eye that lasted several seconds before resolving and no other focal logical deficits. He denies any headache, orbital discomfort, and he denies any other focal logical deficits. NIHSS
equals 0 at this time.
vascular surgery consulted and recommends carotid ultrasound, patient prefer to do the carotid US as outpatient.
During hospitalization patient was treated from the following
TIA - Suspected TIA on the basis of transient vision changes in the right eye associated with CTA showing probable worsening left internal carotid artery stenosis.
Unclear if more hemodynamically significant compared to prior.
Back to normal
- admited to telemetry observation
- continued on DAPT and statin
- vascular consultation. Ultrasound carotid ordered, not available today since it is .
can be done tomorrow, but patient stated that he prefer to do it as outpatient.
History�of�hypertension
Continue home meds
History of hyperlipidemia
Continue�statin
History of hypothyroidism
Continue�levothyroxine
CODE STATUS:�Full�code
DVT�prophylaxis:�Lovenox
Diet:�Regular�diet
Disposition: Dc home today, OP ultrasound carotid
Total time spent on today's encounter was 40 minutes which included time spent in counseling the patient/family regarding diagnosis and treatment plan as listed above, goals of care, and symptom management. Case was discussed with nursing staff,
specialists, and care coordinators/case management. All labs and imaging personally reviewed by me. Remainder the time spent in detailed review of previous records, lab data, imaging, and other medical provider documentation.
Anticipated Discharge: Today
Discharge Plan
-
Patient Disposition: Home (Routine Discharge)
Discharge Diagnosis/Procedures: Right eye vision changes.
Carotid artery stenosis
Diet: Low Cholesterol
Activity: As tolerated
Driving Restrictions: As prior to admission
Referrals:
PCP [Other] - in less than 1 week
Stevenson Guzman MD [Active, Vascular Surgery] - in two to three weeks
Additional Discharge Medication Instructions: Need carotid ultrasound to be done due to as outpatient
Prescriptions:
New
(DME) Carotid ultrasound Doppler
See Rx Instructions .Route .MEDSUPPLY Qty: 1 0RF
Rx Instructions:
Diagnosis: Carotid artery stenosis
Please fax result to Dr. Stevenson Guzman
Continued
pantoprazole 40 mg tablet,delayed release (DR/EC)
40 mg PO DAILY
levothyroxine [Synthroid] 75 mcg Tablet
75 mcg PO DAILY
amlodipine 10 mg Tablet
10 mg PO DAILY Qty: 30 1RF
cyanocobalamin (vitamin B-12) 1,000 mcg Tablet
1,000 mcg PO DAILY
ascorbic acid (vitamin C) [Vitamin C] 500 mg Tablet
500 mg PO DAILY
vitamin E 268 mg (400 unit) Capsule
268 mg PO DAILY
cholecalciferol (vitamin D3) [Vitamin D3] 25 mcg (1,000 unit) Tablet
25 mcg PO DAILY
aspirin 81 mg Tablet,Delayed Release (Dr/Ec)
81 mg PO DAILY 30 Days Qty: 30 0RF
atorvastatin 80 mg Tablet
80 mg PO QPM 30 Days Qty: 30 0RF
clopidogrel 75 mg Tablet
75 mg PO DAILY 21 Days Qty: 21 0RF
Discharge Orders:
Discharge Patient (As Directed); Ordered 01/09/25
Ordered By: Juan Carlos Hernandez
Discharge Date and Time
Print Language: [id number]
== END 2025-01-09 14:22 | disposition home or self-care (01) ==
LOC: 4 EAST ACU 05:02
PROVIDERS: ADMITTING PHYSICIAN Internal Medicine; ATTENDING PHYSICIAN General Practice; EMERGENCY PHYSICIAN Emergency Medicine
DX: H53.121 Transient visual loss, right eye (principal); H53.451 Other localized visual field defect, right eye; H53.8 Other visual disturbances; H54.62 Unqualified visual loss, left eye, normal vision right eye; I65.23 Occlusion and stenosis of bilateral carotid arteries; E03.9 Hypothyroidism, unspecified; I10 Essential (primary) hypertension; I45.10 Unspecified right bundle-branch block; E78.00 Pure hypercholesterolemia, unspecified; Z79.890 Hormone replacement therapy; Z79.02 Long term (current) use of antithrombotics/antiplatelets; Z79.899 Other long term (current) drug therapy; Z83.3 Family history of diabetes mellitus; Z82.49 Family history of ischemic heart disease and other diseases of the circulatory system; Z88.5 Allergy status to narcotic agent; Z79.1 Long term (current) use of non-steroidal anti-inflammatories (NSAID); Z79.82 Long term (current) use of aspirin
CPT/HCPCS: 70496; 70498; 80053; 80061; 85027; 85576; 93005; 99285; G0378; Q9967

== ENCOUNTER → 2025-01-13 06:30 | Outpatient (REF) | payer MEDICARE, OTHER, SELFPAY | LOC: RAD 06:30 | PROVIDERS: ATTENDING PHYSICIAN General Practice; FAMILY PHYSICIAN Internal Medicine; OTHER PHYSICIAN Surgery Vascular Surgery | DX: I77.9 Disorder of arteries and arterioles, unspecified (principal); I63.239 Cerebral infarction due to unspecified occlusion or stenosis of unspecified carotid artery | CPT/HCPCS: 93880 ==

== ENCOUNTER → 2025-01-30 15:44 | Outpatient (REF) | payer MEDICARE, OTHER, SELFPAY | LOC: MRI 15:44 | PROVIDERS: ATTENDING PHYSICIAN Registered Nurse; REFERRING PHYSICIAN Surgery Vascular Surgery | DX: I77.9 Disorder of arteries and arterioles, unspecified (principal); H34.232 Retinal artery branch occlusion, left eye | CPT/HCPCS: 70544; 70549; A9585 ==